=== PATIENT | female | born 1945 | race African-American/Black ===

== ENCOUNTER 2016-03-28 08:54 | Inpatient (IN) | payer MEDICARE, BC ==
[~2016-03-28] VITALS: Ht 165.1 cm; Wt 56.7 kg
[~2016-03-28 08:54] MED LIST: ATORVASTATIN CA10 MG ORAL; BACTRIM DS TAB1 EAC1 ORAL; BUPROPION XL300 MG ORAL; CYMBALTA30 MG ORAL; HYZAAR 100-251 EACH ORAL; MEDROL4 MG ORAL; NORVASC5 MG ORAL; PLAQUENIL200 MG ORAL; PLAVIX75 MG ORAL
[2016-03-28 09:00] VITALS: BP 138/80
[2016-03-28] MEDS ORDERED: NITROGLYCERIN0.4 MG SL (09:01)
[2016-03-28] MEDS ORDERED: BUPROPION XL300 MG ORAL (09:01)
[2016-03-28] MEDS ORDERED: LYRICA75 M1 ORAL (09:01)
[2016-03-28] MEDS ORDERED: Tubing IV Cassette IV ONE (09:35)
[2016-03-28 09:37] LABS: APPEARANCE,URINE CLEAR; KETONES,URINE NEGATIVE (NEGATIVE); LEUKOCYTE ESTERASE ,URINE 1+ (NEGATIVE); NITRITE,URINE NEGATIVE (NEGATIVE); PH,URINE 8 (4.5-8.0); PROTEIN,URINE NEGATIVE (NEGATIVE); UROBILINOGEN,URINE NORMAL MG/DL (0.0-1.0)
[2016-03-28 09:47] LABS: BACTERIA,URINE OCCASIONAL /HPF; RBC,URINE 0-2 /HPF (0 - 2); SQUAMOUS EPITHELIAL CELL,UR OCCASIONAL /LPF (NONE/OCC); WBC,URINE 0-2 /HPF (0 - 2)
[2016-03-28 09:58] LABS: MEAN CORPUSCULAR HEMOGLOBIN 26.9 PG (27.0-31.0); MEAN CORPUSCULAR HGB CONC 32.2 G/DL (32.0-36.0); MEAN CORPUSCULAR VOLUME 84 FL (80-99); MEAN PLATELET VOLUME 9.1 FL (6.5-10.1); PLATELET COUNT 199 K/UL (150-450); RED BLOOD COUNT 4.27 M/UL (4.20-5.40); RED CELL DISTRIBUTION WIDTH 14.8 % (11.6-14.8)
[2016-03-28 10:00] VITALS: BP 149/82
[2016-03-28 10:07] LABS: ALANINE AMINOTRANSFERASE 11 U/L (3-33); ALBUMIN/GLOBULIN RATIO 0.8 (1.0-2.7); ANION GAP 14 (5-15); ASPARTATE AMINO TRANSFERASE 19 U/L (5-40); CALCIUM 8.2 mg/dL (8.6-10.2); CARBON DIOXIDE 24 mEQ/L (20-30); CHLORIDE 99 mEQ/L (98-107); CREATININE 0.9 mg/dL (0.5-0.9); GLOMERULAR FILTRATION RATE > 60 mL/min (>60); HEMOLYSIS 36; LIPASE 13 U/L (< 60); POTASSIUM 3.9 mEQ/L (3.4-4.9); SODIUM 137 mEQ/L (135-145); TOTAL PROTEIN 6.4 g/dL (6.6-8.7)
[2016-03-28 10:17] LABS: TROPONIN I < 0.30 ng/mL (<=0.30)
[2016-03-28 10:21] LABS: CKMB 1.6 ng/mL (< 3.8)
[2016-03-28 10:31] LABS: ANISOCYTOSIS 1+; BAND NEUTROPHILS % (MANUAL) 0 % (0-8); BASOPHILS % (MANUAL) 0 % (0-2); EOSINOPHILS % (MANUAL) 0 % (0-3); HYPOCHROMASIA 1+; LYMPHOCYTES % (MANUAL) 2 % (20-45); NEUTROPHILS % (MANUAL) 94 % (45-75); PLATELET ESTIMATE ADEQUATE; PLATELET MORPHOLOGY NORMAL; TOTAL CELLS COUNTED 100
--- NOTE | 2016-03-28 10:39 | Diagnostic Imaging Report ---
Indication: Altered mental status Technique: Contiguous 5 mm thick transaxial imaging of the head obtained in a Siemens Sensation [address] scanner. Soft tissue and bone windows generated. Total Dose length Product (DLP): [address] Dose Index Volume (CTDIvol): 70.38 mGy Comparison: none Findings: There is mild prominence of the ventricles, basal cisterns, and cerebral sulci consistent with atrophy. Mild, nonspecific, white matter hypoattenuation is noted throughout the brain consistent with chronic small vessel disease. There is a 8mm lacunar infarct in the left basal ganglia region. This is probably old. There is no midline shift, edema, acute hemorrhage, mass effect, or abnormal extra-axial fluid collections. Bones and extra osseous soft tissues are unremarkable. Impression: No acute intracranial bleed, mass effect or edema. 8mm left basal ganglia lacunar infarct, probably old. Mild atrophy of the brain. Nonspecific white matter hypoattenuation probably due to chronic small vessel disease. The CT scanner at [facility] is accredited by the [employer] and the scans are performed using protocols designed to limit radiation exposure to as low as reasonably achievable to attain images of sufficient resolution adequate for diagnostic evaluation.
--- NOTE | 2016-03-28 11:53 | Diagnostic Imaging Report ---
Indication: Chest Pain Comparison: 12/06/15 A single view chest radiograph was obtained. Findings: Left hemidiaphragm is elevated. Borderline cardiomegaly is present. Lungs are clear. Bones are slightly osteopenic. Impression: Elevated left hemidiaphragm
[2016-03-28 12:08] VITALS: BP 129/77
[2016-03-28] MEDS ORDERED: DuoNeb 0.5-3(2.5)mg/3ml neb HHN PRN ×2 (13:15→17:15)
[2016-03-28] MEDS ORDERED: Nitroglycerin Subl 0.4mg tab (Bottle Of 25) SL PRN ×2 (13:15→16:45)
[2016-03-28] MEDS ORDERED: Miralax 17gm pkt ORAL PRN (13:15)
[2016-03-28] MEDS ORDERED: Vancomycin 1 GM in D5W 275 ML IVPB SCH (14:00)
[2016-03-28] MEDS ORDERED: DULoxetine 30mg cap ORAL SCH (14:00)
--- NOTE | 2016-03-28 14:06 | Neurology Progress Note ---
Objective Physical Exam Last Vital Signs Date Time Temp Pulse Resp B/P Pulse Ox O2 Delivery O2 Flow Rate FiO2 03/28/16 12:08 98.4 105 21 129/77 95 Room Air Laboratory Tests Test 03/28/16 09:05 03/28/16 09:35 Urine Color Pale yellow Urine Appearance Clear Urine pH 8 (4.5-8.0) Urine Specific [place] 1.005 (1.005-1.035) Urine Protein Negative (NEGATIVE) Urine Glucose (UA) Negative (NEGATIVE) Urine Ketones Negative (NEGATIVE) Urine Occult Blood Negative (NEGATIVE) Urine Nitrite Negative (NEGATIVE) Urine Bilirubin Negative (NEGATIVE) Urine Urobilinogen Normal MG/DL (0.0-1.0) Urine Leukocyte Esterase 1+ (NEGATIVE) H Urine RBC 0-2 /HPF (0 - 2) Urine WBC 0-2 /HPF (0 - 2) Urine Squamous Epithelial Cells Occasional /LPF Urine Bacteria Occasional /HPF (NONE) White Blood Count 11.0 K/UL (4.8-10.8) H Red Blood Count 4.27 M/UL (4.20-5.40) Hemoglobin 11.5 G/DL (12.0-16.0) L Hematocrit 35.7 % (37.0-47.0) L Mean Corpuscular Volume 84 FL (80-99) Mean Corpuscular Hemoglobin 26.9 PG (27.0-31.0) L Mean Corpuscular Hemoglobin Concent 32.2 G/DL (32.0-36.0) Red Cell Distribution Width 14.8 % (11.6-14.8) Platelet Count 199 K/UL (150-450) Mean Platelet Volume 9.1 FL (6.5-10.1) Neutrophils (%) (Auto) % (45.0-75.0) Lymphocytes (%) (Auto) % (20.0-45.0) Monocytes (%) (Auto) % (1.0-10.0) Eosinophils (%) (Auto) % (0.0-3.0) Basophils (%) (Auto) % (0.0-2.0) Differential Total Cells Counted 100 Neutrophils % (Manual) 94 % (45-75) H Lymphocytes % (Manual) 2 % (20-45) L Monocytes % (Manual) 4 % (1-10) Eosinophils % (Manual) 0 % (0-3) Basophils % (Manual) 0 % (0-2) Band Neutrophils 0 % (0-8) Platelet Estimate Adequate Platelet Morphology Normal Hypochromasia 1+ Anisocytosis 1+ Sodium Level 137 mEQ/L (135-145) Potassium Level 3.9 mEQ/L (3.4-4.9) Chloride Level 99 mEQ/L (98-107) Carbon Dioxide Level 24 mEQ/L (20-30) Anion Gap 14 (5-15) Blood Urea Nitrogen 11 mg/dL (7-23) Creatinine 0.9 mg/dL (0.5-0.9) Estimat Glomerular Filtration Rate > 60 mL/min (>60) Glucose Level 168 mg/dL (74-106) H Lactic Acid Level 1.90 mmol/L (0.66-2.22) Calcium Level 8.2 mg/dL (8.6-10.2) L Total Bilirubin 0.3 mg/dL (0.0-1.2) Aspartate Amino Transf (AST/SGOT) 19 U/L (5-40) Alanine Aminotransferase (ALT/SGPT) 11 U/L (3-33) Alkaline Phosphatase 46 U/L (35-104) Total Creatine Kinase 178 U/L (26-140) H Creatine Kinase MB 1.6 ng/mL (< 3.8) Creatine Kinase MB Relative Index 0.8 Troponin I < 0.30 ng/mL (<=0.30) Pro-B-Type Natriuretic Peptide 423 pg/mL (0-125) H Total Protein 6.4 g/dL (6.6-8.7) L Albumin 3.0 g/dL (3.5-5.2) L Globulin 3.4 g/dL Albumin/Globulin Ratio 0.8 (1.0-2.7) L Lipase 13 U/L (< 60) Impression/Recommendations Problems: (1) probably Meningitis vs. Sepsis with severe encephalopathy (2) Depression (3) h/o benign brain tumor resection and XRT (4) recent UTI (5) Fibromyalgia (6) Lupus (systemic lupus erythematosus) Status: unchanged Recommendations #[id number] CHRISTINE LOPEZ Mar 28, 2016 14:06
[2016-03-28 14:12] LABS: INR 1.1 (0.9-1.1)
--- NOTE | 2016-03-28 14:24 | Emergency Room Report ---
History of Present Illness General Chief Complaint: Altered Level of Consciousness Source: Family Member, EMS Present Illness HPI Patient presents with altered mental status Patient was found this morning by son to be confused and altered Patient has a history of brain tumor and surgery back in 2007 Here the patient is able to make eye contact Withdraws to painful stimuli However is not verbal and does not follow commands Last time known well was over 12 hours ago There was a questionable report of vomiting patient was also found to be very hypoglycemic initially by paramedics given glucose and appears to have responded somewhat to that Patient also has had URI symptoms with increased cough And low-grade fevers at home Otherwise as the patient remains nonverbal history of present illness is significantly limited Allergies: Coded Allergies: IODINE (Verified Allergy, Severe, 03/28/16) ASPIRIN (Verified Allergy, Unknown, 12/06/15) CODEINE (Verified Allergy, Unknown, 12/06/15) Patient History Limited by: medical condition Past Medical History: see triage record Pertinent Family History: none Last Menstrual Period: na Now: No Reviewed Nursing Documentation: PMH: Agreed, PSxH: Agreed Nursing Documentation-PMH Past Medical History: No History, Except For Hx Cardiac Problems: Yes Hx Hypertension: Yes Hx Cancer: Yes - Brain tumor History Of Psychiatric Problem: Yes - depression Hx Seizures: Yes Review of Systems All Other Systems: limited - Other than the ones mentioned in the history of present illness all others are reviewed however they do stay limited due to the patient's mental status Physical Exam Vital Signs Date Time Temp Pulse Resp B/P Pulse Ox O2 Delivery O2 Flow Rate FiO2 03/28/16 08:49 102.7 96 22 147/80 98 Room Air Sp02 EP Interpretation: reviewed, normal General Appearance: no apparent distress - However the patient has a decreased GCS nonverbal Head: normocephalic, atraumatic Eyes: bilateral eye PERRL ENT: normal pharynx, no angioedema, uvula midline Neck: supple, thyroid normal, no meningismus Respiratory: crackles - In both lower lobes, otherwise no retractions Cardiovascular #1: regular rate, rhythm, no edema, no gallop Gastrointestinal: soft, no mass Genitourinary: no CVA tenderness Musculoskeletal: other - Patient was moving upper extremity towards painful stimuli, when the patient required a femoral stick for blood draw, but not following commands Neurologic: other - Patient localizes towards painful stimuli, otherwise nonverbal continues not to be verbal, neurological exam is significantly diminished, Skin: normal color, no rash Lymphatic: no adenopathy Medical Decision Making Diagnostic Impression: Primary Impression: Acute encephalopathy Additional Impressions: Sepsis History of brain tumor Lupus (systemic lupus erythematosus) ER Course Patient is a fairly complex patient with multiple differential to consideration including but not limited to cardiac cardiopulmonary and vascular emergencies Given the patient's history of lupus, microvascular pathology is also entertained CT head shows a previous old lacunar infarct no obvious acute pathology Blood work is at otherwise baseline levels chest x-ray was appropriate Patient has had URI symptoms I do not appreciate any obvious meningismus Patient's CBC is normal and remains hemodynamically stable Patient will require further inpatient care neurology consultation possible MRI And CSF studies as warranted Please note that the patient was also here several months ago syncope Family also mentions that the patient has acute changes of mentation intermittently Labs Test 03/28/16 09:05 03/28/16 09:35 03/28/16 12:35 Urine Color Pale yellow Urine Appearance Clear Urine pH 8 (4.5-8.0) Urine Specific [place] 1.005 (1.005-1.035) Urine Protein Negative (NEGATIVE) Urine Glucose (UA) Negative (NEGATIVE) Urine Ketones Negative (NEGATIVE) Urine Occult Blood Negative (NEGATIVE) Urine Nitrite Negative (NEGATIVE) Urine Bilirubin Negative (NEGATIVE) Urine Urobilinogen Normal MG/DL (0.0-1.0) Urine Leukocyte Esterase 1+ (NEGATIVE) Urine RBC 0-2 /HPF (0 - 2) Urine WBC 0-2 /HPF (0 - 2) Urine Squamous Epithelial Cells Occasional /LPF Urine Bacteria Occasional /HPF (NONE) White Blood Count 11.0 K/UL (4.8-10.8) Red Blood Count 4.27 M/UL (4.20-5.40) Hemoglobin 11.5 G/DL (12.0-16.0) Hematocrit 35.7 % (37.0-47.0) Mean Corpuscular Volume 84 FL (80-99) Mean Corpuscular Hemoglobin 26.9 PG (27.0-31.0) Mean Corpuscular Hemoglobin Concent 32.2 G/DL (32.0-36.0) Red Cell Distribution Width 14.8 % (11.6-14.8) Platelet Count 199 K/UL (150-450) Mean Platelet Volume 9.1 FL (6.5-10.1) Neutrophils (%) (Auto) % (45.0-75.0) Lymphocytes (%) (Auto) % (20.0-45.0) Monocytes (%) (Auto) % (1.0-10.0) Eosinophils (%) (Auto) % (0.0-3.0) Basophils (%) (Auto) % (0.0-2.0) Differential Total Cells Counted 100 Neutrophils % (Manual) 94 % (45-75) Lymphocytes % (Manual) 2 % (20-45) Monocytes % (Manual) 4 % (1-10) Eosinophils % (Manual) 0 % (0-3) Basophils % (Manual) 0 % (0-2) Band Neutrophils 0 % (0-8) Platelet Estimate Adequate Platelet Morphology Normal Hypochromasia 1+ Anisocytosis 1+ Sodium Level 137 mEQ/L (135-145) Potassium Level 3.9 mEQ/L (3.4-4.9) Chloride Level 99 mEQ/L (98-107) Carbon Dioxide Level 24 mEQ/L (20-30) Anion Gap 14 (5-15) Blood Urea Nitrogen 11 mg/dL (7-23) Creatinine 0.9 mg/dL (0.5-0.9) Estimat Glomerular Filtration Rate > 60 mL/min (>60) Glucose Level 168 mg/dL (74-106) Lactic Acid Level 1.90 mmol/L (0.66-2.22) Calcium Level 8.2 mg/dL (8.6-10.2) Total Bilirubin 0.3 mg/dL (0.0-1.2) Aspartate Amino Transf (AST/SGOT) 19 U/L (5-40) Alanine Aminotransferase (ALT/SGPT) 11 U/L (3-33) Alkaline Phosphatase 46 U/L (35-104) Total Creatine Kinase 178 U/L (26-140) Creatine Kinase MB 1.6 ng/mL (< 3.8) Creatine Kinase MB Relative Index 0.8 Troponin I < 0.30 ng/mL (<=0.30) Pro-B-Type Natriuretic Peptide 423 pg/mL (0-125) Total Protein 6.4 g/dL (6.6-8.7) Albumin 3.0 g/dL (3.5-5.2) Globulin 3.4 g/dL Albumin/Globulin Ratio 0.8 (1.0-2.7) Lipase 13 U/L (< 60) Prothrombin Time 11.0 SEC (9.30-11.50) Prothromb Time International Ratio 1.1 (0.9-1.1) Rhythm Strip Diag. Results EP Interpretation: yes Rate: 77 Rhythm: NSR, no PVC's, no ectopy Chest X-Ray Diagnostic Results EP Interpretation: Yes Findings: no consolidation, no effusion, no pneumothorax Number of Views: 1 CT/MRI/US Diagnostic Results CT/MRI/US Diagnostic Results : Impression CT head: No acute disease, old lacunar infarct Last Vital Signs Date Time Temp Pulse Resp B/P Pulse Ox O2 Delivery O2 Flow Rate FiO2 03/28/16 12:08 98.4 105 21 129/77 95 Room Air Status: unchanged Disposition: ADMITTED INPATIENT Condition: Critical Referrals: NON PHYSICIAN (PCP) HELIO VELASQUEZ D.O. Mar 28, 2016 14:24
[2016-03-28] MEDS ORDERED: Cefepime HCl 2 GM in D5W 110 ML IV SCH (15:00)
--- NOTE | 2016-03-28 15:05 | History and Physical ---
History of Present Illness General Date patient seen: Mar 28, 2016 Reason for Hospitalization: Altered Level of Consciousness Present Illness HPI 71 year old female with hx of brain tumor, HTN, was not feeling well for one week, eating less, she became more lethargic in the last hours prior to admission, therefore family members called the paramedics. Pt was somnolent in ER. she was thought to be hypoglycemic and recieved D50 and NS bolus and transferred to medical floor. Allergies: Coded Allergies: IODINE (Verified Allergy, Severe, 03/28/16) ASPIRIN (Verified Allergy, Unknown, 12/06/15) CODEINE (Verified Allergy, Unknown, 12/06/15) Medication History Scheduled Amlodipine Besylate (Norvasc), 10 MG ORAL DAILY, (Reported) Atorvastatin Calcium* (Lipitor*), 10 MG ORAL BEDTIME, (Reported) Bupropion Hcl* (Wellbutrin*), 300 MG ORAL DAILY, (Reported) Bupropion Hcl* (Wellbutrin*), MG ORAL DAILY, (Reported) Clopidogrel Bisulfate* (Plavix*), 75 MG ORAL DAILY, (Reported) Duloxetine Hcl* (Cymbalta*), 30 MG ORAL DAILY, (Reported) Hydroxychloroquine Sulfate* (Plaquenil*), 200 MG ORAL DAILY, (Reported) Losartan/Hydrochlorothiazide 100-25 Tablet (Hyzaar 100-25 Tablet), 1 TAB ORAL DAILY, (Reported) Methylprednisolone* (Medrol*), 4 MG ORAL DAILY, (Reported) Pregabalin* (Lyrica*), 75 MG ORAL THREE TIMES A DAY, (Reported) Trimethoprim/Sulfamethoxazole 160/800* (Bactrim Ds Tablet*), 1 TAB ORAL Q12H Miscellaneous Medications Nitroglycerin (Nitroglycerin), 0.4 MG SL, (Reported) Patient History History Provided By: Family Member Healthcare decision maker Brandon Gil, son Resuscitation status Full Code Advanced Directive on File Past Medical/Surgical History Past Medical/Surgical History: (1) Lupus (systemic lupus erythematosus) (2) Fibromyalgia (3) Depression Review of Systems All Other Systems: negative except mentioned in HPI ROS Narrative pt can't give any history, in coma. Physical Exam Lines, tubes and drains: peripheral HEENT: normocephalic, atraumatic Neck: non-tender, normal alignment Respiratory/Chest: chest wall non-tender, lungs clear Cardiovascular/Chest: normal peripheral pulses, normal rate Abdomen: normal bowel sounds, non tender Genitourinary/Rectal: normal genital exam, normal rectal exam Extremities: normal range of motion Skin Exam: normal pigmentation Last 24 Hour Vital Signs Date Time Temp Pulse Resp B/P Pulse Ox O2 Delivery O2 Flow Rate FiO2 03/28/16 12:08 98.4 105 21 129/77 95 Room Air 03/28/16 10:56 102.4 99 18 149/82 100 Room Air 03/28/16 10:00 99 18 149/82 100 Room Air 03/28/16 09:00 102.4 95 18 138/80 99 Room Air 03/28/16 08:49 102.7 96 22 147/80 98 Room Air Laboratory Tests Test 03/28/16 09:05 03/28/16 09:35 03/28/16 12:35 Urine Color Pale yellow Urine Appearance Clear Urine pH 8 (4.5-8.0) Urine Specific [place] 1.005 (1.005-1.035) Urine Protein Negative (NEGATIVE) Urine Glucose (UA) Negative (NEGATIVE) Urine Ketones Negative (NEGATIVE) Urine Occult Blood Negative (NEGATIVE) Urine Nitrite Negative (NEGATIVE) Urine Bilirubin Negative (NEGATIVE) Urine Urobilinogen Normal MG/DL (0.0-1.0) Urine Leukocyte Esterase 1+ (NEGATIVE) H Urine RBC 0-2 /HPF (0 - 2) Urine WBC 0-2 /HPF (0 - 2) Urine Squamous Epithelial Cells Occasional /LPF Urine Bacteria Occasional /HPF (NONE) White Blood Count 11.0 K/UL (4.8-10.8) H Red Blood Count 4.27 M/UL (4.20-5.40) Hemoglobin 11.5 G/DL (12.0-16.0) L Hematocrit 35.7 % (37.0-47.0) L Mean Corpuscular Volume 84 FL (80-99) Mean Corpuscular Hemoglobin 26.9 PG (27.0-31.0) L Mean Corpuscular Hemoglobin Concent 32.2 G/DL (32.0-36.0) Red Cell Distribution Width 14.8 % (11.6-14.8) Platelet Count 199 K/UL (150-450) Mean Platelet Volume 9.1 FL (6.5-10.1) Neutrophils (%) (Auto) % (45.0-75.0) Lymphocytes (%) (Auto) % (20.0-45.0) Monocytes (%) (Auto) % (1.0-10.0) Eosinophils (%) (Auto) % (0.0-3.0) Basophils (%) (Auto) % (0.0-2.0) Differential Total Cells Counted 100 Neutrophils % (Manual) 94 % (45-75) H Lymphocytes % (Manual) 2 % (20-45) L Monocytes % (Manual) 4 % (1-10) Eosinophils % (Manual) 0 % (0-3) Basophils % (Manual) 0 % (0-2) Band Neutrophils 0 % (0-8) Platelet Estimate Adequate Platelet Morphology Normal Hypochromasia 1+ Anisocytosis 1+ Sodium Level 137 mEQ/L (135-145) Potassium Level 3.9 mEQ/L (3.4-4.9) Chloride Level 99 mEQ/L (98-107) Carbon Dioxide Level 24 mEQ/L (20-30) Anion Gap 14 (5-15) Blood Urea Nitrogen 11 mg/dL (7-23) Creatinine 0.9 mg/dL (0.5-0.9) Estimat Glomerular Filtration Rate > 60 mL/min (>60) Glucose Level 168 mg/dL (74-106) H Lactic Acid Level 1.90 mmol/L (0.66-2.22) Calcium Level 8.2 mg/dL (8.6-10.2) L Total Bilirubin 0.3 mg/dL (0.0-1.2) Aspartate Amino Transf (AST/SGOT) 19 U/L (5-40) Alanine Aminotransferase (ALT/SGPT) 11 U/L (3-33) Alkaline Phosphatase 46 U/L (35-104) Total Creatine Kinase 178 U/L (26-140) H Creatine Kinase MB 1.6 ng/mL (< 3.8) Creatine Kinase MB Relative Index 0.8 Troponin I < 0.30 ng/mL (<=0.30) Pro-B-Type Natriuretic Peptide 423 pg/mL (0-125) H Total Protein 6.4 g/dL (6.6-8.7) L Albumin 3.0 g/dL (3.5-5.2) L Globulin 3.4 g/dL Albumin/Globulin Ratio 0.8 (1.0-2.7) L Lipase 13 U/L (< 60) Prothrombin Time 11.0 SEC (9.30-11.50) Prothromb Time International Ratio 1.1 (0.9-1.1) Height (Feet): 5 Height (Inches): 5.00 Weight (Pounds): 125 Medications Current Medications Medications (Trade) Dose Ordered Sig/Ayana Route PRN Reason Start Time Stop Time Status Last Admin Dose Admin Acetaminophen (Tylenol) 650 mg Q4H PRN ORAL fever 03/28/16 13:15 04/27/16 13:14 Albuterol/ Ipratropium 3 ml 3 ml Q4H PRN HHN Shortness of Breath 03/28/16 13:15 04/02/16 13:14 Amlodipine Besylate (Norvasc) 10 mg DAILY ORAL 03/29/16 09:00 04/28/16 08:59 Atorvastatin Calcium (Lipitor) 10 mg BEDTIME ORAL 03/28/16 21:00 04/27/16 20:59 Bupropion HCl (Wellbutrin XL) 300 mg DAILY ORAL 03/29/16 09:00 04/28/16 08:59 Cefepime HCl 2 gm/ Dextrose 110 ml @ 110 mls/hr Q24H IV 03/28/16 15:00 04/04/16 14:59 Clopidogrel Bisulfate (Plavix) 75 mg DAILY ORAL 03/28/16 14:00 04/27/16 13:59 Duloxetine HCl (Cymbalta) 30 mg DAILY ORAL 03/28/16 14:00 04/27/16 13:59 Heparin Sodium (Porcine) (Heparin 5000 units/ml) 5,000 units EVERY 12 HOURS SUBQ 03/28/16 21:00 04/27/16 20:59 Hydroxychloroquine Sulfate (Plaquenil) 200 mg DAILY ORAL 03/29/16 09:00 04/28/16 08:59 UNV Methylprednisolone (Medrol) 4 mg DAILY ORAL 03/29/16 09:00 04/28/16 08:59 UNV Nitroglycerin 0.4 mg 0.4 mg Q5M PRN SL Prn Chest Pain 03/28/16 13:15 04/27/16 13:14 Ondansetron HCl (Zofran) 4 mg Q6H PRN IVP Nausea & Vomiting 03/28/16 13:15 04/27/16 13:14 Polyethylene Glycol (Miralax) 17 gm DAILYPRN PRN ORAL Constipation 03/28/16 13:15 04/27/16 13:14 Pregabalin (Lyrica) 75 mg THREE TIMES A DAY ORAL 03/28/16 18:00 04/27/16 17:59 Sodium Chloride (0.45% NS 1000ml) 1,000 ml @ 75 mls/hr [id number] IV 03/28/16 13:30 04/27/16 13:29 Temazepam (Restoril) 15 mg HSPRN PRN ORAL Insomnia 03/28/16 13:15 04/04/16 13:14 Vancomycin HCl (Vanco rx to dose) 1 ea DAILY PRN MISC PER RX PROTOCOL 03/28/16 13:30 04/27/16 13:29 Vancomycin HCl/ Dextrose (Vancomycin/D5W) 275 ml @ 183.3 mls/ hr Q24H IVPB 03/28/16 14:00 04/02/16 13:59 Assessment/Plan Problem List: (1) Acute encephalopathy ICD Codes: G93.40 - Encephalopathy, unspecified SNOMED: 4869637 (2) probably Meningitis vs. Sepsis with severe encephalopathy (3) Sepsis ICD Codes: A41.9 - Sepsis, unspecified organism SNOMED: 30574525 (4) Lupus (systemic lupus erythematosus) ICD Codes: M32.9 - Systemic lupus erythematosus, unspecified SNOMED: 93174748, [id number] Qualifiers: Qualified Codes: M32.9 - Systemic lupus erythematosus, unspecified (5) Fibromyalgia ICD Codes: M79.7 - Fibromyalgia SNOMED: 905155788 Assessment/Plan spinal tab by radiology broad spectrum antibiotics Neuro and ID evaluation dvt prophylaxis check cultures daily labs. CHRISTINE NAJERA Mar 28, 2016 15:05
--- NOTE | 2016-03-28 15:47 | Diagnostic Imaging Report ---
Indication: altered mental status Findings: After the indications, procedure, risks, complications, and alternatives of the procedure were explained, written informed consent was obtained. The lower back was prepped and draped in standard sterile fashion.1% lidocaine was used to anesthetize the skin. Using fluoroscopic guidance, 22-gauge spinal needle was advanced into the spinal canal at the level of L4. Multiple attempts were made at the levels of L3, L4 and L5. Only about 3 cc of CSF was obtained and blood-tinged because of the difficulty performing the procedure. Part of the difficulty was related to combativeness. Patient was confused and fluoroscopic guidance was hindered by constant movement. There were no complications. Impression: Lumbar puncture performed. Suboptimal procedure as discussed above.
[2016-03-28 16:00] VITALS: BP 129/77
--- NOTE | 2016-03-28 16:27 | Consultation ---
Consult Note Consult Note ID CONSULT: Dict# [id number] Assessment/Plan ASSESSMENT: 71 y/o female with: // Acute encephalopathy r/o meningitis, SLE cerebritis - SP difficult LP, only 3cc bloody (traumatic) CSF - analysis pending - CT Head: No acute intracranial bleed, mass effect or edema. 8mm left basal ganglia lacunar infarct, probably old. Mild atrophy of the brain. Nonspecific white matter hypoattenuation probably due to chronic small vessel disease. - probable viral with recent URI Sx // Recent URI // Probable sepsis // Leukocytosis, mild // Fever // SLE, on plaquenil, steroids // Fibromyalgia // h/o brain tumor SP resection 2007 // No ABX allergies // Full Code PLAN: - continue empiric IV vancomycin d# 1, change cefepime to rocephin, ampicillin, ACY meningitis coverage pending CSF studies - check influenza, HIV, RPR, HSV serology, TSH, NH4, B12, folate, UDS - consider MRI brain - f/u cultures - f/u CSF studies - f/u EBONY - monitor CBC, temperatures - monitor BMP - droplet precautions pending CSF studies d/w family at bedside Thanks! Will follow KIP HARDIGN Mar 28, 2016 16:27
[2016-03-28] MEDS ORDERED: Acyclovir 1,000 MG in D5W 275 ML IVPB SCH (16:30)
[2016-03-28 16:53] LABS: GLUCOSE,CSF 38 mg/dL (50-80)
[2016-03-28 17:12] LABS: APPEARANCE,CSF HAZY; COLOR,CSF PALE YELLOW
[2016-03-28 17:15] LABS: LYMPHOCYTES,CSF 88 %; WHITE BLOOD CELL,CSF 12 /CU MM (0-5)
[2016-03-28] MEDS ORDERED: Ampicillin 1 GM in NS 55 ML IVPB SCH (18:00)
[2016-03-28] MEDS: Lyrica 75mg cap ORAL SCH (18:00)
[2016-03-28] MEDS ORDERED: Lyrica 75mg cap ORAL SCH (18:00)
[2016-03-28] MEDS: Ampicillin 2 GM in NS 110 ML IV SCH ×2 (18:16→23:51)
[2016-03-28 18:31] LABS: THYROID STIMULATING HORMONE 0.682 uIU/mL (0.300-4.500)
[2016-03-28] MEDS: cefTRIAXone 2 GM in D5W 110 ML IVPB SCH (19:39)
[2016-03-28 20:00] VITALS: BP 144/87
[2016-03-28] MEDS ORDERED: Morphine Sulfate 2mg/ml Inj IVP PRN (20:15)
[2016-03-28] MEDS ORDERED: cefTRIAXone 2 GM in D5W 110 ML IVPB SCH (21:00)
[2016-03-28] MEDS ORDERED: Heparin 5000 units/ml inj SUBQ SCH (21:00)
[2016-03-28 21:04] LABS: APPEARANCE,URINE CLEAR; KETONES,URINE 2+ (NEGATIVE); LEUKOCYTE ESTERASE ,URINE NEGATIVE (NEGATIVE); NITRITE,URINE NEGATIVE (NEGATIVE); PH,URINE 8 (4.5-8.0); PROTEIN,URINE 1+ (NEGATIVE); UROBILINOGEN,URINE NORMAL MG/DL (0.0-1.0)
[2016-03-28] MEDS: Heparin 5000 units/ml inj SUBQ SCH (21:14)
[2016-03-28] MEDS: ACYCLOVIR IV SCH (21:14)
[2016-03-28] MEDS: D5W IV SCH (21:14)
[2016-03-28 21:27] LABS: RBC,URINE 0-2 /HPF (0 - 2); SQUAMOUS EPITHELIAL CELL,UR OCCASIONAL /LPF (NONE/OCC); WBC,URINE 0-2 /HPF (0 - 2)
--- NOTE | 2016-03-28 21:48 | Consultation ---
DATE OF CONSULTATION: 03/28/2016 INFECTIOUS DISEASE CONSULTATION REQUESTING PHYSICIAN: Gregory Campos M.D. REASON FOR CONSULTATION: Acute encephalopathy. HISTORY OF PRESENT ILLNESS: This is a 71-year-old female with a history of lupus on Plaquenil and steroids admitted on 03/28/2016 with altered mental status. The patient had been recently recovering from upper respiratory tract infection. The patient is unable to provide any information. A CT of the head showed no acute intracranial bleed and probable old left basal ganglia infarct. A lumbar puncture was attempted under fluoroscopy, but it was difficult due to patient cooperation. Only a 3 mL of bloody fluid was obtained and analysis is pending. She has evidence of mild leukocytosis and fever at 102.7. She has been started on empiric vancomycin and cefepime and ID now consulted to assist in management. PAST MEDICAL HISTORY: 1. Lupus. 2. Depression. 3. Fibromyalgia. 4. Hypertension. 5. Brain tumor. PAST SURGICAL HISTORY: Brain tumor resection in 2007. ALLERGIES: 1. Aspirin. 2. Codeine. 3. Iodine. MEDICATIONS: 1. Vancomycin day #1. 2. Cefepime day #1. 3. Solu-Medrol. 4. Plaquenil. 5. Bupropion. 6. Norvasc. 7. Lipitor. 8. Subcutaneous heparin. 9. Lyrica. 10. Plavix. 11. Cymbalta. FAMILY HISTORY: Noncontributory. SOCIAL HISTORY: The patient lives locally with family. No active tobacco, alcohol, or illicit drug abuse. REVIEW OF SYSTEMS: Unable to obtain. PHYSICAL EXAMINATION: VITAL SIGNS: Maximum temperature 102.7 degrees, blood pressure 129/77, heart rate in the 90s, respiratory rate 21, and saturating 95% on room air. GENERAL: Encephalopathic and restless. HEENT: Dry mucous membranes. Poor dentition. CARDIOVASCULAR: Regular rate and rhythm. No murmurs. PULMONARY: Clear to auscultation bilaterally. ABDOMEN: Bowel sounds present. Soft, nondistended, and nontender. EXTREMITIES: No edema. SKIN: No rash. LABORATORY DATA: White blood cell count 11 with left shift, hemoglobin 11.5, and platelets 199,000. Sodium 137, potassium 3.9, chloride 99, bicarbonate 24, BUN 11, and creatinine 0.9. Lactic acid is 1.9. AST 19, ALT 11, and alkaline phosphatase 46. Total bilirubin is 0.3. Albumin is 3. Troponin is negative x1. Lipase is 30. MICROBIOLOGY: 1. On 03/28/2016, blood culture pending. 2. On 03/28/2016, CSF culture pending. 3. On 03/28/2016, urine culture pending. IMAGIN. On 03/28/2016, CT of the head, no acute intracranial bleed, mass effect, or edema. A 8 mm left basal ganglia lacunar infarct probably old. Mild atrophy. Nonspecific white matter hypoattenuation probably due to chronic small vessel disease. 2. On 03/28/2016, chest x-ray, no acute findings. ASSESSMENT: 1. Acute encephalopathy rule out meningitis or lupus cerebritis. Status post difficult lumbar puncture with only 3 mL traumatic CSF obtained. Analysis is pending. The CT of the head, as above. The rest represent meningitis likely viral with recent upper respiratory tract symptoms. 2. Recent upper respiratory tract infection. 3. Probable sepsis. 4. Leukocytosis, mild. 5. Fever. 6. Lupus on Plaquenil and steroids. 7. Fibromyalgia. 8. History of brain tumor status post resection in 2007. 9. No antibiotic allergies. 10. Full Code. PLAN: 1. Continue empiric IV vancomycin day #1 and change cefepime to Rocephin and ampicillin and acyclovir for meningitis coverage. Pending CSF studies. 2. Check influenza screen, HIV, RPR, HSV, TSH, ammonia, B12 folate and drug screen. 3. Consider MRI of the brain. 4. Follow up cultures. 5. Follow up CSF studies. 6. Follow up EBONY. 7. Monitor CBC and temperatures. 8. Monitor BMP. 9. Droplet precautions pending CSF studies. 10. Discussed with family at bedside. Thank you. We will follow. Guero Cannon M.D. DR: SONIA JOB#: [id number] CC: Gregory Campos M.D.; Fax#: [phone] Lerma M.D; Fax#: [phone]
[2016-03-28] MEDS ORDERED: LORAZEPAM1 MG ORAL (21:49)
[2016-03-28] MEDS ORDERED: LOSARTAN-HCTZ1 EACH ORAL (21:49)
[2016-03-28] MEDS ORDERED: BACTRIM DS TAB1 EAC1 ORAL (21:53)
--- NOTE | 2016-03-28 22:07 | Consultation ---
DATE OF CONSULTATION: 03/28/2016 NEUROLOGICAL CONSULTATION HISTORY OF PRESENT ILLNESS: The patient is a 71-year-old female seen in neurological consultation to evaluate new onset of unresponsiveness according to the family who were present during this examination. The patient was treated for urinary tract infection and diarrhea in November of last year was maintained on antibiotics with some overall improvement but couple of weeks ago when rechecked by her family physician she was told that her infection coming back, she was prescribed a new antibiotics but at that point she started to get "sicker." The patient developed signs of flu like symptoms accompanied by nausea, vomiting, lack of appetite, generalized weakness, spending most of the days in bed, complaining of severe headache, myalgia, nausea, and vomiting. She was taking Tylenol, Advil, and [id number] analgesics, felt somewhat better yesterday and around 01:30 on the phone with her daughter she was found to be very good and was coherent, later on the day after having a dinner with her nephew she was nauseous, had vomiting, and went to bed. In the morning her grandson found her unresponsive, she was initially able to relate to her first name but as paramedics arrived she was taken to emergency room she become completely nonverbal. Her blood sugar was initially 55 she was given D50, no much of improvement occurred, she was suspected to have hypoglycemic crisis. Her vital signs included presence of low-grade fevers of 101. Medications at home included Bactrim, Medrol Silver, atorvastatin, losartan, Cymbalta. The family states that new antibiotics were given by her doctor and were not actually taken. Following admission, laboratory work was obtained revealing CBC study with WBC 11.0 hemoglobin 11.5. Chemistry panel with BNP 423, blood sugar 168. Lactic acid 1.90. Urinalysis was essentially normal. Stat CT of the brain revealed old basal ganglia lacunar infarct in the left basal ganglia, mild diffuse atrophy and there was a nonspecific white matter hypoattenuation, probable chronic small vessel disease. Chest x-ray, left hemidiaphragmatic elevated but borderline cardiomegaly. Following admission, the patient remained fever 102.7 blood pressure 147/80 and heart rate of 100 to 105. The patient remained unresponsive including to her family. PAST MEDICAL HISTORY: The patient has extensive medical history. She had benign brain tumor in 2007 required treatment with radiation and transnasal resection. She has history of lupus erythematosus, history of fibromyalgia, depression, hypertension, gastroesophageal reflux disease. Her treatment prior to admission included Wellbutrin, atorvastatin, amlodipine, Plavix, Cymbalta, Plaquenil, Hyzaar, Medrol 4 mg daily, Lyrica 75 mg t.i.d., PAST SURGICAL HISTORY: Family now informed me that she had bilateral cataract surgeries. ALLERGIES: Aspirin, codeine, and iodine. FAMILY HISTORY: Noncontributory. SOCIAL HISTORY: The patient lives at home with her grandson. She is independent, provide herself with all activities of daily living. Ambulating without cane, able to cook meals. No alcohol, no drug abuse but she is a smoker. REVIEW OF SYSTEM: Unable to obtain due to patient's status. PHYSICAL EXAMINATION: GENERAL: The patient is a well-developed and well-nourished female, found to be lying in bed, appears to be asleep. VITAL SIGNS: Now stable with blood pressure 129/77, heart rate of 105, temperature 97.4. HEENT: Head is normocephalic. There is no evidence of trauma. NECK: Rigid on flexion. Positive meningeal signs. SKIN: Unremarkable. There is no rash. Peripheral pulses 1+ symmetric. No thyromegaly. No lymphadenopathy noted. MENTAL STATUS: The patient appears to be asleep but on stimulation she briefly open eyes, have a brief eye contact. She has a remained nonverbal and she does not follow any commands even given by her children. CRANIAL NERVE II: Pupils both responding to light and accommodation. Extraocular movement full range. Unable to see fundi CRANIAL NERVE V: Normal corneal responses. CRANIAL NERVE VII: No gross facial asymmetry. CRANIAL NERVE III: Normal hearing. CRANIAL NERVE IX THROUGH XII: The patient kept mouth very shut and never opened it. MOTOR EXAMINATION: Able to lift arms against the gravity. Able to resists with both lower extremities, straight leg raising, mildly positive bilaterally. Deep tendon reflexes 1+ bilaterally symmetric. Plantar responses flexor. SENSORY EXAMINATION: No response to pin stimulation. Gait not tested. IMPRESSION: 1. This is a 71-year-old female with persistent infection now presenting what appears to be sepsis versus meningitis. 2. Systemic lupus erythematosus, rule out lupus encephalitis. 3. Fibromyalgia. 4. Status post benign brain tumor resection status post radiation therapy. 5. History of depression. 6. Indepedent. 7. Recently diagnosed coronary artery disease. RECOMMENDATION: 1. The patient to have stat spinal tap to obtain spinal fluid. 2. Start on steroids and Decadron 6 mg IVPB every six hours. 3. NPO. 4. IV fluids, antibiotics with wide coverage per ID. 5. Hold all unessential treatment. 6. If stable obtain MRI of the brain with and without contrast. I discussed the patient's status with the family who agreed to sign consent for the patient, discussed with attending physician. Thank you for allowing me to see this interesting patient in neurological consultation. Rolando Nancy Delarosa DR: Eduarda JOB#: [id number] CC:
[2016-03-29 00:25] VITALS: BP 135/77
--- NOTE | 2016-03-29 01:47 | Consultation ---
DATE OF CONSULTATION: 03/28/2016 RHEUMATOLOGICAL CONSULTATION CONSULTING PHYSICIAN: Peggy Youssef M.D. REASON FOR CONSULTATION: I was asked by Dr. Campos to assess this 71-year-old patient because of sudden loss of consciousness and state of unresponsiveness associated with high fever and history of lupus. HISTORY OF PRESENT ILLNESS: The patient is known to have fibromyalgia and systemic lupus erythematosus being followed by a mandarin chinese teacher, Dr. Gary Dorsey, telephone #[phone]. She is known to have systemic lupus for many years and is being followed by a mandarin chinese teacher on a regular basis. She has also associated diagnosis of fibromyalgia and for the last year has only one admission for urinary tract infection in this hospital in November 2015. She was placed on Lyrica for fibromyalgia more than 10 days ago, however, few days later she developed fever and remained bedridden and did not take the Lyrica. This morning, she was found unresponsive in bed. She was transferred to [facility] ER and was admitted. Since her admission, she has been assessed by a neurologist. She had chest x-ray, head CT, and lumbar puncture, which revealed low glucose and high protein, and the patient was transferred to the cardiac monitoring unit. PAST MEDICAL HISTORY: The criteria for her systemic lupus was known to the family. The patient does not respond to any question, however, the patient is alert enough to establish eye contact at least for a brief period of time. 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 The patient tolerated the procedure well. She followed the procedure. She had radiation therapy from which she did not suffer as well. Over the last 10 years, her main symptom was diffuse articular pain diagnosed with fibromyalgia. ALLERGIES: The patient is allergic to aspirin, codeine, and iodine; all of them give her rash. FAMILY HISTORY: Her father in his 30s when the patient was 12 years old from consequence of alcoholism. Her mother of old age from Alzheimer dementia. She has 5 brothers, four of them ; none of them of connective-tissue disease. One brother is alive and in good health. She has 2 daughters and one of them is the main source of information to this consultation and the other one has systemic lupus and followed by a mandarin chinese teacher. SOCIAL HISTORY: She is a . She was born in [place]. She has been retired for several years. HABITS: The patient continues to smoke 1 pack a day for at least 50 years. She denies drinking and denies the use of illicit drugs. REVIEW OF SYSTEMS: The patient is unable to give any information regarding the state of health, however, according to her daughter, the patient was completely functional two weeks ago and complained mainly of diffuse articular pain, morning stiffness, and poor quality sleep. PHYSICAL EXAMINATION: VITAL SIGNS: Blood pressure is 129/77, her pulse was 97, respirations were 20, and temperature 97.7 degrees. HEENT: Eyes were normal. Pupils were round, equal, and reactive to light. Sclera was white. Conjunctiva was pink. Extraocular movement could not be assessed. Temporal arteries were palpable bilaterally. There was no bilateral temporal wasting. Visual granado to confrontation were normal and neglect sign could not be assessed. Repeat visual field to confrontation and neglect sign could not be assessed. ENT, mucous membranes were not dehydrated. Auditory canals were clear and tympanic membranes could not be visualized. Nasal cavity was not congested; however, the oral cavity could not be assessed because of the inability to observe the content of oral cavity. NECK: Supple. There was no goiter. No mass. No lymphadenopathy. There was no jugular venous distention. No bruits. Carotid upstroke was 2+. LUNGS: Clear. PMI was in fifth left intercostal space in midclavicular line. HEART: Normal S1 and normal S2. There was no murmur. No arrhythmia. No S3. No S4. No pericardial rub. ABDOMEN: Soft and nontender without organomegaly. There were no masses palpable. Normal bowel sounds without bruits. There was no guarding. No rebound tenderness. No ascites. No hernia. No CVA tenderness. Liver span was 8 cm, mostly nontender. EXTREMITIES: Warm. No cyanosis, no clubbing, and no edema. NEUROLOGIC: Reflexes, biceps, triceps, and brachioradialis were present. Patellar retinaculum were present. Plantar were indifferent. Cranial nerves from II through XII were symmetric and equal. Cerebellar function, there was no tremor. No nystagmus. No extrapyramidal rigidity. Sensory exam to pinprick, cotton touch, position, and motor strength could not be assessed. LABORATORY AND DIAGNOSTIC DATA: Hemoglobin 11.5, hematocrit 35.7, MCV of 84, WBC of 11.0, and platelets are 199,000. Her sed rate is 63. Her BUN and creatinine is 11 and 0.9 respectively. Sodium was 137, potassium 3.9, chloride 99, and CO2 was 24. SGOT and SGPT were normal. Her total CK is 174. Her troponin was not detected. Her proBNP is 423. Albumin was 3.0 and globulin was 3.4. Lipase was 13. There was no hyperglobulinemia. Her urine screen with 1+ leukocyte esterase, but that was negative for protein and negative for blood. Her INR was 1.1. Her cerebrospinal fluid revealed glucose of 38 and total protein of 176, was abnormal. Her chest x-ray revealed left elevated hemidiaphragm, borderline cardiomegaly, but otherwise normal study. Her head CT revealed some enlargement of the ventricle, basal cistern and several sulci consistent with atrophy and with white matter disease and hyperattenuation. There was no midline shift. There was no edema. No acute hemorrhage. No active pericardial bleed or mass effect. IMPRESSION: The patient has fever, sepsis, encephalitis, and not able to thrombocytopenia and noted hyperglobulinemia, was probably lupus exacerbation, however, the patient did not fulfil the criteria for lupus. PLAN: The patient to undergo biological assessment in regard to her immunity status, EBONY, rheumatoid factor, ESR, CRP, antiphospholipid antibodies and lupus anticoagulant will be requested as well as anti-DNA double-stranded. Repeat laboratory tests was already done. Thank you, Dr. Campos, for allowing me to participate in this critical case. Peggy Youssef M.D. DR: LIZZIE JOB#: [id number] CC:
[2016-03-29 04:00] VITALS: BP 142/76
[2016-03-29] MEDS: Ampicillin 2 GM in NS 110 ML IV SCH ×3 (05:08→19:04)
[2016-03-29] MEDS: ACYCLOVIR IV SCH ×3 (06:02→23:28)
[2016-03-29] MEDS: D5W IV SCH ×3 (06:02→23:28)
[2016-03-29] MEDS ORDERED: Vancomycin 1.25 GM in D5W 275 ML IVPB SCH (08:00)
[2016-03-29 08:03] VITALS: BP 133/77
[2016-03-29 08:11] LABS: HSV 1 ANTIBODY IGG 2.46 index (0.00-0.90); HSV 2 ANTIBODY IGG 3.58 index (0.00-0.90)
[2016-03-29 08:29] LABS: BASOPHILS % (AUTO) 1.6 % (0.0-2.0); EOSINOPHILS % (AUTO) 1.9 % (0.0-3.0); LYMPHOCYTES % (AUTO) 14.7 % (20.0-45.0); MEAN CORPUSCULAR HEMOGLOBIN 27.3 PG (27.0-31.0); MEAN CORPUSCULAR HGB CONC 32.6 G/DL (32.0-36.0); MEAN CORPUSCULAR VOLUME 84 FL (80-99); MEAN PLATELET VOLUME 8.4 FL (6.5-10.1); MONOCYTES % (AUTO) 7.1 % (1.0-10.0); NEUTROPHILS % (AUTO) 74.7 % (45.0-75.0); PLATELET COUNT 175 K/UL (150-450); RED BLOOD COUNT 4.22 M/UL (4.20-5.40); RED CELL DISTRIBUTION WIDTH 15.1 % (11.6-14.8); WHITE BLOOD COUNT 3.5 K/UL (4.8-10.8)
[2016-03-29 08:43] LABS: ALANINE AMINOTRANSFERASE 8 U/L (3-33); ALBUMIN/GLOBULIN RATIO 0.8 (1.0-2.7); ANION GAP 16 (5-15); ASPARTATE AMINO TRANSFERASE 17 U/L (5-40); CALCIUM 7.7 mg/dL (8.6-10.2); CARBON DIOXIDE 24 mEQ/L (20-30); CHLORIDE 96 mEQ/L (98-107); CREATININE 0.7 mg/dL (0.5-0.9); GLOMERULAR FILTRATION RATE > 60 mL/min (>60); HEMOLYSIS 15; POTASSIUM 3.9 mEQ/L (3.4-4.9); SODIUM 136 mEQ/L (135-145); TOTAL PROTEIN 6.1 g/dL (6.6-8.7)
[2016-03-29] MEDS ORDERED: DULoxetine 30mg cap ORAL SCH (09:00)
[2016-03-29] MEDS ORDERED: BuPROPion XL 300mg tab ORAL SCH ×2 (09:00)
[2016-03-29] MEDS: cefTRIAXone 2 GM in D5W 110 ML IVPB SCH ×2 (09:45→21:43)
[2016-03-29] MEDS: Heparin 5000 units/ml inj SUBQ SCH ×2 (09:45→21:53)
[2016-03-29] MEDS: Lyrica 75mg cap ORAL SCH ×4 (10:59→21:46)
[2016-03-29 11:31] VITALS: BP 117/68
--- NOTE | 2016-03-29 12:49 | Neurology Progress Note ---
Interim History Interim History ROS Limited/Unobtainable: No Complaints: cough Events: back to normal in am Objective Physical Exam Last Vital Signs Date Time Temp Pulse Resp B/P Pulse Ox O2 Delivery O2 Flow Rate FiO2 03/29/16 11:31 98.5 84 18 117/68 97 Room Air Laboratory Tests Test 03/28/16 15:50 03/28/16 17:15 03/28/16 20:00 03/29/16 06:50 CSF Appearance Hazy CSF Color Pale yellow CSF WBC 12 /CU MM (0-5) *H CSF RBC 4520 /CU MM CSF Neutrophils % 10 % CSF Lymphocytes % 88 % CSF Monocytes % 2 % CSF Crenated Cells 0 % CSF Glucose 38 mg/dL (50-80) L CSF Total Protein 176 mg/dL (15-45) H Ammonia 17 umol/L (11-51) Vitamin B12 Level 276 pg/mL (211-946) Folate 10.5 ng/mL (>3.0) Thyroid Stimulating Hormone (TSH) 0.682 uIU/mL (0.300-4.500) Anti-Nuclear Antibody Screen Pending Anti-Double Strand DNA Antibody Pending Total Complement (CH50) Pending Rapid Plasma Reagin Non reactive (Non Reactive) Herpes Simplex Virus I IgG Antibody 2.46 index (0.00-0.90) H Herpes Simplex Virus II IgG Ab 3.58 index (0.00-0.90) H HIV (1&2) Antibody Rapid Negative (NEGATIVE) Urine Color Pale yellow Urine Appearance Clear Urine pH 8 (4.5-8.0) Urine Specific Sebastian 1.010 (1.005-1.035) Urine Protein 1+ (NEGATIVE) H Urine Glucose (UA) Negative (NEGATIVE) Urine Ketones 2+ (NEGATIVE) H Urine Occult Blood Negative (NEGATIVE) Urine Nitrite Negative (NEGATIVE) Urine Bilirubin Negative (NEGATIVE) Urine Urobilinogen Normal MG/DL (0.0-1.0) Urine Leukocyte Esterase Negative (NEGATIVE) Urine RBC 0-2 /HPF (0 - 2) Urine WBC 0-2 /HPF (0 - 2) Urine Squamous Epithelial Cells Occasional /LPF Urine Bacteria None /HPF (NONE) White Blood Count 3.5 K/UL (4.8-10.8) #L Red Blood Count 4.22 M/UL (4.20-5.40) Hemoglobin 11.5 G/DL (12.0-16.0) L Hematocrit 35.3 % (37.0-47.0) L Mean Corpuscular Volume 84 FL (80-99) Mean Corpuscular Hemoglobin 27.3 PG (27.0-31.0) Mean Corpuscular Hemoglobin Concent 32.6 G/DL (32.0-36.0) Red Cell Distribution Width 15.1 % (11.6-14.8) H Platelet Count 175 K/UL (150-450) Mean Platelet Volume 8.4 FL (6.5-10.1) Neutrophils (%) (Auto) 74.7 % (45.0-75.0) Lymphocytes (%) (Auto) 14.7 % (20.0-45.0) L Monocytes (%) (Auto) 7.1 % (1.0-10.0) Eosinophils (%) (Auto) 1.9 % (0.0-3.0) Basophils (%) (Auto) 1.6 % (0.0-2.0) Sodium Level 136 mEQ/L (135-145) Potassium Level 3.9 mEQ/L (3.4-4.9) Chloride Level 96 mEQ/L (98-107) L Carbon Dioxide Level 24 mEQ/L (20-30) Anion Gap 16 (5-15) H Blood Urea Nitrogen 10 mg/dL (7-23) Creatinine 0.7 mg/dL (0.5-0.9) Estimat Glomerular Filtration Rate > 60 mL/min (>60) Glucose Level 81 mg/dL (74-106) Calcium Level 7.7 mg/dL (8.6-10.2) L Total Bilirubin 0.3 mg/dL (0.0-1.2) Aspartate Amino Transf (AST/SGOT) 17 U/L (5-40) Alanine Aminotransferase (ALT/SGPT) 8 U/L (3-33) Alkaline Phosphatase 41 U/L (35-104) Total Protein 6.1 g/dL (6.6-8.7) L Albumin 2.8 g/dL (3.5-5.2) L Globulin 3.3 g/dL Albumin/Globulin Ratio 0.8 (1.0-2.7) L General: well developed, well nourished, no acute distress Head: normocophalic, atraumatic Neck: no rigidity Neurologic Exam Mental Status: awake, alert, oriented x4, normal cognition, normal recent memory, normal remote memory, other - amnestic on events yesterday Speech: normal speech, no dysarthia Language: normal language, no aphasia Cranial Nerve II: fundus normal, visual granado, no papilledema Cranial Nerves III, IV, : PERRLA, EOMI, pupils Cranial Nerve V: normal facial sensations, temporales function normal, masseters function normal, pterygoids function normal Cranial Nerve VII: no facial asymmetry, normal facial expressions Cranial Nerve VIII: normal hearing, no nystagmus Cranial Nerve IX: normal palate elevation, gag response Cranial Nerve X: no voice hoarseness Cranial Nerve XI: SCM symmetric, trapezii function normal Cranial Nerve XII: tongue midline, no tongue atrophy/fasciculations Motor System: normal muscle tone, strength 5/5, no involuntary movement, no muscle wasting Sensory: normal pinprick, normal light touch, normal position sense, normal graphesthesia Coordination: normal finger to nose bilaterally, normal heel to gillespie bilaterally, negative Romberg test Deep Tendon Reflexes: 0 ankle (L), 0 ankle (R), 0 bicep (L), 0 bicep (R), 0 brachioradialis (L), 0 brachioradialis (R), 0 knee (L), 0 knee (R), 0 tricep (L) , 0 tricep (R) Reflexes: flexor plantar (L), flexor plantar (R) Stance: normal Gait: stable, normal regular, heel + toe gait Impression/Recommendations Problems: (1) nonbacterial 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
[2016-03-29] MEDS ORDERED: Miralax 17gm pkt ORAL PRN (13:15)
[2016-03-29] MEDS ORDERED: Vancomycin 1 GM in D5W 275 ML IVPB SCH (14:00)
--- NOTE | 2016-03-29 14:31 | Wound Care Consultation ---
Wound Assessment Wound Assessment : Wound Present on Admission: Yes New Wound: No Status Change of Wound: No Wound Location Body Site Modif: left, upper Wound Location Body Site: arm Wound Type: blister - open and intact Hannah Test: Does not Hannah Wound Thickness: Partial Thickness Wound Drainage Description: Serosanguineous Wound Drainage Amount: Scant Wound Drainage Odor: None/Absent Tissue Surrounding Wound: Denuded Wound General Appearance: Reddened Wound Comment #1 Left upper arm with open and intact blisters Recommendation -Cleanse with saline pat dry apply adaptic secure with suresite film dressing -Turn and reposition -Keep clean and dry -Optimize nutrition -Assess and f/u for s/s of infection or any changes accordingly JOHN KATZ RN Mar 29, 2016 14:31
--- NOTE | 2016-03-29 15:34 | Pulmonology Progress Note ---
Assessment/Plan Problems: (1) Acute encephalopathy (2) probably Meningitis vs. Sepsis with severe encephalopathy (3) Sepsis (4) Lupus (systemic lupus erythematosus) (5) Fibromyalgia Assessment/Plan mental status improved continue antibiotics check cultures check lupus serology med/surg Subjective ROS Limited/Unobtainable: No Constitutional: Reports: no symptoms HEENT: Repors: no symptoms Respiratory: Reports: no symptoms Allergies: Coded Allergies: IODINE (Verified Allergy, Severe, 03/28/16) ASPIRIN (Verified Allergy, Unknown, 12/06/15) CODEINE (Verified Allergy, Unknown, 12/06/15) Objective Last 24 Hour Vital Signs Date Time Temp Pulse Resp B/P Pulse Ox O2 Delivery O2 Flow Rate FiO2 03/29/16 13:34 96.8 03/29/16 11:31 98.5 84 18 117/68 97 Room Air 03/29/16 11:00 77 140/94 03/29/16 08:30 87 03/29/16 08:03 98.3 84 18 133/77 98 Room Air 03/29/16 04:00 97.0 74 20 142/76 97 03/29/16 04:00 85 03/29/16 00:25 98.0 95 20 135/77 94 Room Air 03/29/16 00:00 91 03/28/16 20:00 90 03/28/16 20:00 97.5 98 20 144/87 99 Room Air 03/28/16 16:00 97.7 97 20 129/77 95 Room Air Intake and Output 03/28/16 03/29/16 19:00 07:00 Intake Total 1128 ml 1449 ml Output Total 450 ml 850 ml Balance 678 ml 599 ml Intake Oral 0 ml IV Total 1128 ml 1449 ml Output Urine Total 450 ml 850 ml General Appearance: WD/WN HEENT: normocephalic, atraumatic Respiratory/Chest: chest wall non-tender, lungs clear Cardiovascular: normal peripheral pulses, normal rate Genitourinary: normal external genitalia 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, no motor/sensory deficits Lymphatic: no neck adenopathy Microbiology Date/Time Source Procedure Growth Status 03/28/16 15:50 Cerebral Spinal Fluid Gram Stain - Final Resulted 03/28/16 15:50 Cerebral Spinal Fluid CSF Culture - Preliminary NO GROWTH AFTER 24 HOURS Resulted 03/28/16 23:45 Nasopharynx Influenza Types A,B Antigen (NELL) - Final Complete Laboratory Tests 03/28/16 15:50: CSF Appearance Hazy, CSF Color Pale yellow, CSF WBC 12*H, CSF RBC 4520, CSF Neutrophils % 10, CSF Lymphocytes % 88, CSF Monocytes % 2, CSF Crenated Cells 0 , CSF Glucose 38L, CSF Total Protein 176H 03/28/16 17:15: Ammonia 17, Vitamin B12 Level 276, Folate 10.5, Thyroid Stimulating Hormone (TSH ) 0.682, Anti-Nuclear Antibody Screen [Pending], Anti-Double Strand DNA Antibody [Pending], Total Complement (CH50) [Pending], Rapid Plasma Reagin Non reactive, Herpes Simplex Virus I IgG Antibody 2.46H, Herpes Simplex Virus II IgG Ab 3.58H, HIV (1&2) Antibody Rapid Negative 03/28/16 20:00: Urine Color Pale yellow, Urine Appearance Clear, Urine pH 8, Urine Specific [place] 1.010, Urine Protein 1+H, Urine Glucose (UA) Negative, Urine Ketones 2+H , Urine Occult Blood Negative, Urine Nitrite Negative, Urine Bilirubin Negative , Urine Urobilinogen Normal, Urine Leukocyte Esterase Negative, Urine RBC 0-2, Urine WBC 0-2, Urine Squamous Epithelial Cells Occasional, Urine Bacteria None 03/29/16 06:50: White Blood Count 3.5#L, Red Blood Count 4.22, Hemoglobin 11.5L, Hematocrit 35.3L, Mean Corpuscular Volume 84, Mean Corpuscular Hemoglobin 27.3, Mean Corpuscular Hemoglobin Concent 32.6, Red Cell Distribution Width 15.1H, Platelet Count 175, Mean Platelet Volume 8.4, Neutrophils (%) (Auto) 74.7, Lymphocytes (%) (Auto) 14.7L, Monocytes (%) (Auto) 7.1, Eosinophils (%) (Auto) 1.9, Basophils (%) (Auto) 1.6, Sodium Level 136, Potassium Level 3.9, Chloride Level 96L, Carbon Dioxide Level 24, Anion Gap 16H, Blood Urea Nitrogen 10, Creatinine 0.7, Estimat Glomerular Filtration Rate > 60, Glucose Level 81, Calcium Level 7.7L, Total Bilirubin 0.3, Aspartate Amino Transf (AST/SGOT) 17, Alanine Aminotransferase (ALT/SGPT) 8, Alkaline Phosphatase 41, Total Protein 6.1L, Albumin 2.8L, Globulin 3.3, Albumin/Globulin Ratio 0.8L Current Medications Medications (Trade) Dose Ordered Sig/Ayana Route PRN Reason Start Time Stop Time Status Last Admin Dose Admin Acetaminophen (Tylenol) 650 mg Q4H PRN ORAL fever 03/28/16 17:15 04/27/16 17:14 Acyclovir 600 mg/ Dextrose 110 ml @ 110 mls/hr Q8HR IV 03/28/16 20:00 04/27/16 19:59 03/29/16 06:02 Albuterol/ Ipratropium (DuoNeb 0.5-3(2.5)mg/3ml) 3 ml Q4H PRN HHN Shortness of Breath 03/28/16 17:15 04/02/16 17:14 Amlodipine Besylate (Norvasc) 10 mg DAILY ORAL 03/29/16 09:00 04/28/16 08:59 03/29/16 11:00 Ampicillin 2 gm/ Sodium Chloride 110 ml @ 220 mls/hr EVERY 6 HOURS IV 03/28/16 18:30 04/04/16 18:29 03/29/16 14:28 Atorvastatin Calcium (Lipitor) 10 mg BEDTIME ORAL 03/28/16 21:00 04/27/16 20:59 Bupropion HCl (Wellbutrin XL) 300 mg DAILY ORAL 03/29/16 09:00 04/28/16 08:59 03/29/16 11:00 Ceftriaxone Sodium/Dextrose (Rocephin/D5W) 110 ml @ 220 mls/hr EVERY 12 HOURS IVPB 03/28/16 19:00 04/04/16 18:59 03/29/16 09:45 Clopidogrel Bisulfate (Plavix) 75 mg DAILY ORAL 03/29/16 09:00 04/28/16 08:59 03/29/16 09:45 Duloxetine HCl (Cymbalta) 30 mg DAILY ORAL 03/29/16 09:00 04/28/16 08:59 03/29/16 09:00 Heparin Sodium (Porcine) (Heparin 5000 units/ml) 5,000 units EVERY 12 HOURS SUBQ 03/28/16 21:00 04/27/16 20:59 03/29/16 09:45 Hydroxychloroquine Sulfate (Plaquenil) 200 mg BID ORAL 03/29/16 13:00 04/28/16 12:59 03/29/16 14:31 Methylprednisolone (Medrol) 4 mg DAILY ORAL 03/29/16 09:00 04/28/16 08:59 UNV Morphine Sulfate (Morphine Sulfate) 2 mg Q4H PRN IVP For Pain 03/28/16 20:15 04/04/16 20:14 03/28/16 21:16 Nitroglycerin (Ntg) 0.4 mg Q5M PRN SL Prn Chest Pain 03/28/16 16:45 04/27/16 16:44 Ondansetron HCl (Zofran) 4 mg Q6H PRN IVP Nausea & Vomiting 03/28/16 19:15 04/27/16 19:14 03/28/16 18:15 Polyethylene Glycol (Miralax) 17 gm DAILYPRN PRN ORAL Constipation 03/29/16 13:15 04/28/16 13:14 Pregabalin (Lyrica) 75 mg THREE TIMES A DAY ORAL 03/28/16 18:00 04/27/16 17:59 03/29/16 14:30 Sodium Chloride 1,000 ml @ 75 mls/hr [id number] IV 03/28/16 18:00 04/27/16 17:59 03/28/16 18:16 Temazepam (Restoril) 15 mg HSPRN PRN ORAL Insomnia 03/29/16 13:15 04/05/16 13:14 Vancomycin HCl 1 ea 1 ea DAILY PRN MISC PER RX PROTOCOL 03/29/16 09:00 04/28/16 08:59 Vancomycin HCl/ Dextrose (Vancomycin/D5W) 275 ml @ 183.3 mls/ hr Q24H IVPB 03/29/16 08:00 04/03/16 07:59 03/29/16 13:32 CHRISTINE NAJERA Mar 29, 2016 15:34
[2016-03-29 16:00] VITALS: BP 139/82
--- NOTE | 2016-03-29 16:59 | Infectious Diseases Prog Note ---
Assessment/Plan Assessment/Plan ASSESSMENT: 71 y/o female with: // Acute encephalopathy r/o meningitis, SLE cerebritis - resolved - SP difficult LP, only 3cc bloody (traumatic) - CSF lymphocytic pleocytosis , elevated TP, GS(-), Cx NGTD - CT Head: No acute intracranial bleed, mass effect or edema. 8mm left basal ganglia lacunar infarct, probably old. Mild atrophy of the brain. Nonspecific white matter hypoattenuation probably due to chronic small vessel disease. - probable viral with recent URI Sx - seropositive HSV-1,2 - negative/WNL: HIV, RPR, influenza, TSH, folate, B12, NH4 // Recent URI - negative influenza // Probable sepsis SP // Leukocytosis, mild --> leukopenia // Fever - resolved // SLE, on plaquenil, steroids r/o flare - elevated ESR, rheum following // Fibromyalgia // h/o brain tumor SP resection 2007 // No ABX allergies // Full Code PLAN: - continue empiric IV vancomycin, rocephin, ampicillin, ACY d# 2, de-escalate soon - taper steroids per rheum - consider MRI brain - f/u cultures - f/u EBONY panel - monitor CBC, temperatures - monitor BMP - droplet precautions pending CSF Cx d/w Dr. Campos Subjective Allergies: Coded Allergies: IODINE (Verified Allergy, Severe, 03/28/16) ASPIRIN (Verified Allergy, Unknown, 12/06/15) CODEINE (Verified Allergy, Unknown, 12/06/15) Subjective fevers resolved, encephalopathy resolved, denies meningismus Objective Vital Signs Last 24 Hour Vital Signs Date Time Temp Pulse Resp B/P Pulse Ox O2 Delivery O2 Flow Rate FiO2 03/29/16 16:00 97.8 81 20 139/82 98 Room Air 03/29/16 13:34 96.8 03/29/16 11:31 98.5 84 18 117/68 97 Room Air 03/29/16 11:00 77 140/94 03/29/16 08:30 87 03/29/16 08:03 98.3 84 18 133/77 98 Room Air 03/29/16 04:00 97.0 74 20 142/76 97 03/29/16 04:00 85 03/29/16 00:25 98.0 95 20 135/77 94 Room Air 03/29/16 00:00 91 03/28/16 20:00 90 03/28/16 20:00 97.5 98 20 144/87 99 Room Air Height (Feet): 5 Height (Inches): 5.00 Weight (Pounds): 125 General Appearance: no acute distress Respiratory/Chest: no respiratory distress Cardiovascular: normal rate, regular rhythm Abdomen: normal bowel sounds, soft, non tender, non distended Neurologic/Psychiatric: alert, oriented x 3 Microbiology Date/Time Source Procedure Growth Status 03/28/16 15:50 Cerebral Spinal Fluid Gram Stain - Final Resulted 03/28/16 15:50 Cerebral Spinal Fluid CSF Culture - Preliminary NO GROWTH AFTER 24 HOURS Resulted 03/28/16 23:45 Nasopharynx Influenza Types A,B Antigen (NELL) - Final Complete Laboratory Tests Test 03/28/16 17:15 03/28/16 20:00 03/29/16 06:50 Ammonia 17 umol/L (11-51) Vitamin B12 Level 276 pg/mL (211-946) Folate 10.5 ng/mL (>3.0) Thyroid Stimulating Hormone (TSH) 0.682 uIU/mL (0.300-4.500) Anti-Nuclear Antibody Screen Pending Anti-Double Strand DNA Antibody Pending Total Complement (CH50) Pending Rapid Plasma Reagin Non reactive (Non Reactive) Herpes Simplex Virus I IgG Antibody 2.46 index (0.00-0.90) H Herpes Simplex Virus II IgG Ab 3.58 index (0.00-0.90) H HIV (1&2) Antibody Rapid Negative (NEGATIVE) Urine Color Pale yellow Urine Appearance Clear Urine pH 8 (4.5-8.0) Urine Specific [place] 1.010 (1.005-1.035) Urine Protein 1+ (NEGATIVE) H Urine Glucose (UA) Negative (NEGATIVE) Urine Ketones 2+ (NEGATIVE) H Urine Occult Blood Negative (NEGATIVE) Urine Nitrite Negative (NEGATIVE) Urine Bilirubin Negative (NEGATIVE) Urine Urobilinogen Normal MG/DL (0.0-1.0) Urine Leukocyte Esterase Negative (NEGATIVE) Urine RBC 0-2 /HPF (0 - 2) Urine WBC 0-2 /HPF (0 - 2) Urine Squamous Epithelial Cells Occasional /LPF Urine Bacteria None /HPF (NONE) White Blood Count 3.5 K/UL (4.8-10.8) #L Red Blood Count 4.22 M/UL (4.20-5.40) Hemoglobin 11.5 G/DL (12.0-16.0) L Hematocrit 35.3 % (37.0-47.0) L Mean Corpuscular Volume 84 FL (80-99) Mean Corpuscular Hemoglobin 27.3 PG (27.0-31.0) Mean Corpuscular Hemoglobin Concent 32.6 G/DL (32.0-36.0) Red Cell Distribution Width 15.1 % (11.6-14.8) H Platelet Count 175 K/UL (150-450) Mean Platelet Volume 8.4 FL (6.5-10.1) Neutrophils (%) (Auto) 74.7 % (45.0-75.0) Lymphocytes (%) (Auto) 14.7 % (20.0-45.0) L Monocytes (%) (Auto) 7.1 % (1.0-10.0) Eosinophils (%) (Auto) 1.9 % (0.0-3.0) Basophils (%) (Auto) 1.6 % (0.0-2.0) Sodium Level 136 mEQ/L (135-145) Potassium Level 3.9 mEQ/L (3.4-4.9) Chloride Level 96 mEQ/L (98-107) L Carbon Dioxide Level 24 mEQ/L (20-30) Anion Gap 16 (5-15) H Blood Urea Nitrogen 10 mg/dL (7-23) Creatinine 0.7 mg/dL (0.5-0.9) Estimat Glomerular Filtration Rate > 60 mL/min (>60) Glucose Level 81 mg/dL (74-106) Calcium Level 7.7 mg/dL (8.6-10.2) L Total Bilirubin 0.3 mg/dL (0.0-1.2) Aspartate Amino Transf (AST/SGOT) 17 U/L (5-40) Alanine Aminotransferase (ALT/SGPT) 8 U/L (3-33) Alkaline Phosphatase 41 U/L (35-104) Total Protein 6.1 g/dL (6.6-8.7) L Albumin 2.8 g/dL (3.5-5.2) L Globulin 3.3 g/dL Albumin/Globulin Ratio 0.8 (1.0-2.7) L Current Medications Medications (Trade) Dose Ordered Sig/Ayana Route PRN Reason Start Time Stop Time Status Last Admin Dose Admin Acetaminophen (Tylenol) 650 mg Q4H PRN ORAL fever 03/28/16 17:15 04/27/16 17:14 Acyclovir 600 mg/ Dextrose 110 ml @ 110 mls/hr Q8HR IV 03/28/16 20:00 04/27/16 19:59 03/29/16 06:02 Albuterol/ Ipratropium (DuoNeb 0.5-3(2.5)mg/3ml) 3 ml Q4H PRN HHN Shortness of Breath 03/28/16 17:15 04/02/16 17:14 Amlodipine Besylate (Norvasc) 10 mg DAILY ORAL 03/29/16 09:00 04/28/16 08:59 03/29/16 11:00 Ampicillin 2 gm/ Sodium Chloride 110 ml @ 220 mls/hr EVERY 6 HOURS IV 03/28/16 18:30 04/04/16 18:29 03/29/16 14:28 Atorvastatin Calcium (Lipitor) 10 mg BEDTIME ORAL 03/28/16 21:00 04/27/16 20:59 Bupropion HCl (Wellbutrin XL) 300 mg DAILY ORAL 03/29/16 09:00 04/28/16 08:59 03/29/16 11:00 Ceftriaxone Sodium/Dextrose (Rocephin/D5W) 110 ml @ 220 mls/hr EVERY 12 HOURS IVPB 03/28/16 19:00 04/04/16 18:59 03/29/16 09:45 Clopidogrel Bisulfate (Plavix) 75 mg DAILY ORAL 03/29/16 09:00 04/28/16 08:59 03/29/16 09:45 Duloxetine HCl (Cymbalta) 30 mg DAILY ORAL 03/29/16 09:00 04/28/16 08:59 03/29/16 09:00 Heparin Sodium (Porcine) (Heparin 5000 units/ml) 5,000 units EVERY 12 HOURS SUBQ 03/28/16 21:00 04/27/16 20:59 03/29/16 09:45 Hydroxychloroquine Sulfate (Plaquenil) 200 mg BID ORAL 03/29/16 13:00 04/28/16 12:59 03/29/16 14:31 Methylprednisolone (Medrol) 4 mg DAILY ORAL 03/29/16 09:00 04/28/16 08:59 UNV Morphine Sulfate (Morphine Sulfate) 2 mg Q4H PRN IVP For Pain 03/28/16 20:15 04/04/16 20:14 03/28/16 21:16 Nitroglycerin (Ntg) 0.4 mg Q5M PRN SL Prn Chest Pain 03/28/16 16:45 04/27/16 16:44 Ondansetron HCl (Zofran) 4 mg Q6H PRN IVP Nausea & Vomiting 03/28/16 19:15 04/27/16 19:14 03/28/16 18:15 Polyethylene Glycol (Miralax) 17 gm DAILYPRN PRN ORAL Constipation 03/29/16 13:15 04/28/16 13:14 Pregabalin (Lyrica) 75 mg THREE TIMES A DAY ORAL 03/28/16 18:00 04/27/16 17:59 03/29/16 14:30 Sodium Chloride 1,000 ml @ 75 mls/hr [id number] IV 03/28/16 18:00 04/27/16 17:59 03/28/16 18:16 Temazepam (Restoril) 15 mg HSPRN PRN ORAL Insomnia 03/29/16 13:15 04/05/16 13:14 Vancomycin HCl 1 ea 1 ea DAILY PRN MISC PER RX PROTOCOL 03/29/16 09:00 04/28/16 08:59 Vancomycin HCl/ Dextrose (Vancomycin/D5W) 275 ml @ 183.3 mls/ hr Q24H IVPB 03/29/16 08:00 04/03/16 07:59 03/29/16 13:32 KIP HARDING Mar 29, 2016 16:59
[2016-03-29 19:13] LABS: ANTI DNA DS ANTIBODY 8 IU/mL (0-9)
[2016-03-29 20:00] VITALS: BP 121/72
[2016-03-30] VITALS (8 sets, daily range): BP systolic 115–140; BP diastolic 67–84
[2016-03-30] MEDS: Ampicillin 2 GM in NS 110 ML IV SCH ×4 (00:04→18:32)
[2016-03-30] MEDS ORDERED: Nitroglycerin Subl 0.4mg tab (Bottle Of 25) SL PRN (02:45)
[2016-03-30] MEDS ORDERED: Morphine Sulfate 2mg/ml Inj IVP PRN (04:15)
[2016-03-30] MEDS ORDERED: DuoNeb 0.5-3(2.5)mg/3ml neb HHN PRN (05:15)
[2016-03-30] MEDS: ACYCLOVIR IV SCH ×3 (06:04→22:52)
[2016-03-30] MEDS: D5W IV SCH ×3 (06:04→22:52)
[2016-03-30] MEDS ORDERED: Vancomycin 1.25 GM in D5W 275 ML IVPB SCH (08:00)
[2016-03-30] MEDS: DULoxetine 30mg cap ORAL SCH (09:00)
[2016-03-30] MEDS: Lyrica 75mg cap ORAL SCH ×3 (09:00→18:33)
[2016-03-30] MEDS: cefTRIAXone 2 GM in D5W 110 ML IVPB SCH ×2 (09:00→21:16)
[2016-03-30] MEDS: LORazepam 1mg tab ORAL SCH (09:30)
[2016-03-30] MEDS: Heparin 5000 units/ml inj SUBQ SCH ×2 (09:43→21:36)
[2016-03-30] MEDS: BuPROPion XL 300mg tab ORAL SCH (09:45)
[2016-03-30 10:55] LABS: CSF COMMENT PATHOLOGIST COMMENT
[2016-03-30 12:15] LABS: MEAN CORPUSCULAR HEMOGLOBIN 26.3 PG (27.0-31.0); MEAN CORPUSCULAR HGB CONC 31.5 G/DL (32.0-36.0); MEAN CORPUSCULAR VOLUME 83 FL (80-99); MEAN PLATELET VOLUME 9.9 FL (6.5-10.1); PLATELET COUNT 224 K/UL (150-450); RED BLOOD COUNT 4.45 M/UL (4.20-5.40); RED CELL DISTRIBUTION WIDTH 14.4 % (11.6-14.8); WHITE BLOOD COUNT 2.1 K/UL (4.8-10.8)
[2016-03-30 12:29] LABS: ALANINE AMINOTRANSFERASE 9 U/L (3-33); ALBUMIN/GLOBULIN RATIO 0.9 (1.0-2.7); ANION GAP 16 (5-15); ASPARTATE AMINO TRANSFERASE 13 U/L (5-40); CALCIUM 8.6 mg/dL (8.6-10.2); CARBON DIOXIDE 25 mEQ/L (20-30); CHLORIDE 97 mEQ/L (98-107); CREATININE 0.6 mg/dL (0.5-0.9); CRP QUANT 5.7 mg/dL (< 0.5); GLOMERULAR FILTRATION RATE > 60 mL/min (>60); HEMOLYSIS 5; MAGNESIUM 1.7 mg/dL (1.7-2.5); PHOSPHORUS 3.2 mg/dL (2.5-4.8); POTASSIUM 3.5 mEQ/L (3.4-4.9); SODIUM 138 mEQ/L (135-145); TOTAL PROTEIN 6.7 g/dL (6.6-8.7)
[2016-03-30 12:37] LABS: ANISOCYTOSIS 1+; BAND NEUTROPHILS % (MANUAL) 0 % (0-8); BASOPHILS % (MANUAL) 0 % (0-2); EOSINOPHILS % (MANUAL) 4 % (0-3); HYPOCHROMASIA 1+; LYMPHOCYTES % (MANUAL) 33 % (20-45); NEUTROPHILS % (MANUAL) 59 % (45-75); PLATELET ESTIMATE ADEQUATE; PLATELET MORPHOLOGY NORMAL; TOTAL CELLS COUNTED 100
[2016-03-30] MEDS ORDERED: Miralax 17gm pkt ORAL PRN (13:15)
[2016-03-30 13:24] LABS: ERYTHROCYTE SEDIMENTATION RATE 77 MM/HR (0-30)
--- NOTE | 2016-03-30 15:50 | Infectious Diseases Prog Note ---
Assessment/Plan Assessment/Plan ASSESSMENT: 71 y/o female with: // Acute encephalopathy, probable viral meningitis - resolved - SP difficult LP, only 3cc bloody (traumatic) - CSF lymphocytic pleocytosis , elevated TP, GS(-), Cx NGTD ( low glucose possibly d/t difficult procedure, delayed analysis ) - CT Head: No acute intracranial bleed, mass effect or edema. 8mm left basal ganglia lacunar infarct, probably old. Mild atrophy of the brain. Nonspecific white matter hypoattenuation probably due to chronic small vessel disease. - probable viral with recent URI Sx - seropositive HSV-1,2 - negative/WNL: HIV, RPR, influenza, TSH, folate, B12, NH4 // Recent URI - negative influenza // Probable sepsis SP // Leukocytosis, mild --> leukopenia ( SLE contributing ) // Fever - resolved // SLE, on plaquenil, steroids r/o flare - elevated ESR, rheum following - EBONY(+) // Fibromyalgia // h/o brain tumor SP resection 2007 // No ABX allergies // Full Code PLAN: - de-escalate ABX - continue rocephin d# 3 for now, DC IV vancomycin, ampicillin , ACY d# 3 - taper steroids per rheum - f/u cultures - f/u EBONY panel - monitor CBC, temperatures - monitor BMP - DC droplet precautions Subjective Allergies: Coded Allergies: IODINE (Verified Allergy, Severe, 03/28/16) ASPIRIN (Verified Allergy, Unknown, 12/06/15) CODEINE (Verified Allergy, Unknown, 12/06/15) Subjective fevers resolved, encephalopathy resolved, denies meningismus wants to eat Objective Vital Signs Last 24 Hour Vital Signs Date Time Temp Pulse Resp B/P Pulse Ox O2 Delivery O2 Flow Rate FiO2 03/30/16 12:22 97.0 80 19 120/72 100 Room Air 03/30/16 10:45 96.2 03/30/16 09:30 74 130/77 03/30/16 08:51 97.7 82 19 119/67 98 Room Air 03/30/16 04:00 97.2 83 18 115/76 98 Room Air 03/30/16 00:00 97.9 83 16 119/71 95 Room Air 03/29/16 20:00 97.8 82 21 121/72 97 Room Air 03/29/16 19:07 75 1/18/17 19:01 94 03/29/16 16:00 98.4 03/29/16 16:00 97.8 81 20 139/82 98 Room Air Height (Feet): 5 Height (Inches): 5.00 Weight (Pounds): 125 General Appearance: no acute distress Respiratory/Chest: normal breath sounds, no respiratory distress Cardiovascular: normal rate, regular rhythm Abdomen: normal bowel sounds, soft, non tender, non distended Extremities: no edema Skin: no rash Neurologic/Psychiatric: alert, oriented x 3 Microbiology Date/Time Source Procedure Growth Status 03/28/16 09:35 Blood Blood Culture - Preliminary NO GROWTH AFTER 24 HOURS Resulted 03/28/16 08:53 Blood Blood Culture - Preliminary NO GROWTH AFTER 24 HOURS Resulted 03/28/16 15:50 Cerebral Spinal Fluid Gram Stain - Final Resulted 03/28/16 15:50 Cerebral Spinal Fluid CSF Culture - Preliminary NO GROWTH AFTER 48 HOURS Resulted 03/28/16 23:45 Nasopharynx Influenza Types A,B Antigen (NELL) - Final Complete 03/28/16 20:00 Indwelling Cath Urine Culture - Preliminary NO GROWTH AFTER 24 HOURS Resulted 03/28/16 20:00 Back Gram Stain - Final Resulted 03/28/16 20:00 Back Wound Culture - Preliminary NO GROWTH AFTER 24 HOURS Resulted Laboratory Tests Test 03/30/16 12:00 White Blood Count 2.1 K/UL (4.8-10.8) *L Red Blood Count 4.45 M/UL (4.20-5.40) Hemoglobin 11.7 G/DL (12.0-16.0) L Hematocrit 37.1 % (37.0-47.0) Mean Corpuscular Volume 83 FL (80-99) Mean Corpuscular Hemoglobin 26.3 PG (27.0-31.0) L Mean Corpuscular Hemoglobin Concent 31.5 G/DL (32.0-36.0) L Red Cell Distribution Width 14.4 % (11.6-14.8) Platelet Count 224 K/UL (150-450) Mean Platelet Volume 9.9 FL (6.5-10.1) Neutrophils (%) (Auto) % (45.0-75.0) Lymphocytes (%) (Auto) % (20.0-45.0) Monocytes (%) (Auto) % (1.0-10.0) Eosinophils (%) (Auto) % (0.0-3.0) Basophils (%) (Auto) % (0.0-2.0) Differential Total Cells Counted 100 Neutrophils % (Manual) 59 % (45-75) Lymphocytes % (Manual) 33 % (20-45) Monocytes % (Manual) 4 % (1-10) Eosinophils % (Manual) 4 % (0-3) H Basophils % (Manual) 0 % (0-2) Band Neutrophils 0 % (0-8) Platelet Estimate Adequate Platelet Morphology Normal Hypochromasia 1+ Anisocytosis 1+ Erythrocyte Sedimentation Rate 77 MM/HR (0-30) H Sodium Level 138 mEQ/L (135-145) Potassium Level 3.5 mEQ/L (3.4-4.9) Chloride Level 97 mEQ/L (98-107) L Carbon Dioxide Level 25 mEQ/L (20-30) Anion Gap 16 (5-15) H Blood Urea Nitrogen 6 mg/dL (7-23) L Creatinine 0.6 mg/dL (0.5-0.9) Estimat Glomerular Filtration Rate > 60 mL/min (>60) Glucose Level 84 mg/dL (74-106) Calcium Level 8.6 mg/dL (8.6-10.2) Phosphorus Level 3.2 mg/dL (2.5-4.8) Magnesium Level 1.7 mg/dL (1.7-2.5) Total Bilirubin 0.2 mg/dL (0.0-1.2) Aspartate Amino Transf (AST/SGOT) 13 U/L (5-40) Alanine Aminotransferase (ALT/SGPT) 9 U/L (3-33) Alkaline Phosphatase 43 U/L (35-104) C-Reactive Protein, Quantitative 5.7 mg/dL (< 0.5) H Total Protein 6.7 g/dL (6.6-8.7) Albumin 3.2 g/dL (3.5-5.2) L Globulin 3.5 g/dL Albumin/Globulin Ratio 0.9 (1.0-2.7) L Current Medications Medications (Trade) Dose Ordered Sig/Ayana Route PRN Reason Start Time Stop Time Status Last Admin Dose Admin Acetaminophen (Tylenol) 650 mg Q4H PRN ORAL fever 03/30/16 05:15 04/29/16 05:14 Acyclovir 600 mg/ Dextrose 110 ml @ 110 mls/hr Q8HR IV 03/30/16 06:00 04/29/16 05:59 03/30/16 06:04 Albuterol/ Ipratropium (DuoNeb 0.5-3(2.5)mg/3ml) 3 ml Q4H PRN HHN Shortness of Breath 03/30/16 05:15 04/04/16 05:14 Amlodipine Besylate (Norvasc) 10 mg DAILY ORAL 03/30/16 09:00 04/29/16 08:59 03/30/16 09:30 Ampicillin 2 gm/ Sodium Chloride 110 ml @ 220 mls/hr EVERY 6 HOURS IV 03/30/16 06:00 04/06/16 05:59 03/30/16 12:00 Atorvastatin Calcium (Lipitor) 10 mg BEDTIME ORAL 03/30/16 21:00 04/29/16 20:59 Bupropion HCl (Wellbutrin XL) 300 mg DAILY ORAL 03/30/16 09:00 04/29/16 08:59 03/30/16 09:45 Ceftriaxone Sodium 2 gm/ Dextrose 110 ml @ 220 mls/hr EVERY 12 HOURS IVPB 03/30/16 09:00 04/06/16 08:59 03/30/16 09:00 Clopidogrel Bisulfate (Plavix) 75 mg DAILY ORAL 03/30/16 09:00 04/29/16 08:59 03/30/16 09:29 Duloxetine HCl (Cymbalta) 30 mg DAILY ORAL 03/30/16 09:00 04/29/16 08:59 03/30/16 09:00 Heparin Sodium (Porcine) (Heparin 5000 units/ml) 5,000 units EVERY 12 HOURS SUBQ 03/30/16 09:00 04/29/16 08:59 03/30/16 09:43 Hydroxychloroquine Sulfate (Plaquenil) 200 mg BID ORAL 03/30/16 09:00 04/29/16 08:59 03/30/16 09:33 Lorazepam 1 mg 1 mg DAILY ORAL 03/30/16 09:00 04/06/16 08:59 03/30/16 09:30 Methylprednisolone (Medrol) 4 mg DAILY ORAL 03/30/16 09:00 04/29/16 08:59 03/30/16 09:30 Morphine Sulfate (Morphine Sulfate) 2 mg Q4H PRN IVP For Pain 03/30/16 04:15 04/06/16 04:14 Nitroglycerin (Ntg) 0.4 mg Q5M PRN SL Prn Chest Pain 03/30/16 02:45 04/29/16 02:44 Ondansetron HCl (Zofran) 4 mg Q6H PRN IVP Nausea & Vomiting 03/30/16 07:15 04/29/16 07:14 Polyethylene Glycol (Miralax) 17 gm DAILYPRN PRN ORAL Constipation 03/30/16 13:15 04/29/16 13:14 Pregabalin (Lyrica) 75 mg THREE TIMES A DAY ORAL 03/30/16 09:00 04/29/16 08:59 03/30/16 09:49 Sodium Chloride 1,000 ml @ 75 mls/hr [id number] IV 03/30/16 02:45 04/29/16 02:44 03/30/16 15:08 Temazepam (Restoril) 15 mg HSPRN PRN ORAL Insomnia 03/30/16 13:15 04/06/16 13:14 Vancomycin HCl (Vanco rx to dose) 1 ea DAILY PRN MISC PER RX PROTOCOL 03/30/16 09:00 04/29/16 08:59 Vancomycin HCl/ Dextrose (Vancomycin/D5W) 275 ml @ 183.3 mls/ hr Q24H IVPB 03/30/16 08:00 04/04/16 07:59 03/30/16 08:40 KIP HARDING Mar 30, 2016 15:50
--- NOTE | 2016-03-30 17:09 | Neurology Progress Note ---
Interim History Interim History ROS Limited/Unobtainable: No Complaints: feel ok Events: stable Objective Physical Exam Last Vital Signs Date Time Temp Pulse Resp B/P Pulse Ox O2 Delivery O2 Flow Rate FiO2 03/30/16 12:22 97.0 80 19 120/72 100 Room Air Laboratory Tests Test 03/30/16 12:00 White Blood Count 2.1 K/UL (4.8-10.8) *L Red Blood Count 4.45 M/UL (4.20-5.40) Hemoglobin 11.7 G/DL (12.0-16.0) L Hematocrit 37.1 % (37.0-47.0) Mean Corpuscular Volume 83 FL (80-99) Mean Corpuscular Hemoglobin 26.3 PG (27.0-31.0) L Mean Corpuscular Hemoglobin Concent 31.5 G/DL (32.0-36.0) L Red Cell Distribution Width 14.4 % (11.6-14.8) Platelet Count 224 K/UL (150-450) Mean Platelet Volume 9.9 FL (6.5-10.1) Neutrophils (%) (Auto) % (45.0-75.0) Lymphocytes (%) (Auto) % (20.0-45.0) Monocytes (%) (Auto) % (1.0-10.0) Eosinophils (%) (Auto) % (0.0-3.0) Basophils (%) (Auto) % (0.0-2.0) Differential Total Cells Counted 100 Neutrophils % (Manual) 59 % (45-75) Lymphocytes % (Manual) 33 % (20-45) Monocytes % (Manual) 4 % (1-10) Eosinophils % (Manual) 4 % (0-3) H Basophils % (Manual) 0 % (0-2) Band Neutrophils 0 % (0-8) Platelet Estimate Adequate Platelet Morphology Normal Hypochromasia 1+ Anisocytosis 1+ Erythrocyte Sedimentation Rate 77 MM/HR (0-30) H Sodium Level 138 mEQ/L (135-145) Potassium Level 3.5 mEQ/L (3.4-4.9) Chloride Level 97 mEQ/L (98-107) L Carbon Dioxide Level 25 mEQ/L (20-30) Anion Gap 16 (5-15) H Blood Urea Nitrogen 6 mg/dL (7-23) L Creatinine 0.6 mg/dL (0.5-0.9) Estimat Glomerular Filtration Rate > 60 mL/min (>60) Glucose Level 84 mg/dL (74-106) Calcium Level 8.6 mg/dL (8.6-10.2) Phosphorus Level 3.2 mg/dL (2.5-4.8) Magnesium Level 1.7 mg/dL (1.7-2.5) Total Bilirubin 0.2 mg/dL (0.0-1.2) Aspartate Amino Transf (AST/SGOT) 13 U/L (5-40) Alanine Aminotransferase (ALT/SGPT) 9 U/L (3-33) Alkaline Phosphatase 43 U/L (35-104) C-Reactive Protein, Quantitative 5.7 mg/dL (< 0.5) H Total Protein 6.7 g/dL (6.6-8.7) Albumin 3.2 g/dL (3.5-5.2) L Globulin 3.5 g/dL Albumin/Globulin Ratio 0.9 (1.0-2.7) L General: well developed, well nourished, no acute distress Head: normocophalic, atraumatic Neck: no rigidity Neurologic Exam Mental Status: awake, alert, oriented x4, normal cognition, normal recent memory, normal remote memory, other - amnestic on recent episode Speech: normal speech, no dysarthia Language: normal language, no aphasia Cranial Nerve II: fundus normal, visual granado, no papilledema Cranial Nerves III, IV, : PERRLA, EOMI, pupils Cranial Nerve V: normal facial sensations, temporales function normal, masseters function normal, pterygoids function normal Cranial Nerve VII: no facial asymmetry, normal facial expressions Cranial Nerve VIII: normal hearing, no nystagmus Cranial Nerve IX: normal palate elevation, gag response Cranial Nerve X: no voice hoarseness Cranial Nerve XI: SCM symmetric, trapezii function normal Cranial Nerve XII: tongue midline, no tongue atrophy/fasciculations Motor System: normal muscle tone, strength 5/5, no involuntary movement, no muscle wasting Sensory: normal pinprick, normal light touch, normal position sense, normal graphesthesia Coordination: normal finger to nose bilaterally, normal heel to gillespie bilaterally, negative Romberg test Deep Tendon Reflexes: 0 ankle (L), 0 ankle (R), 0 bicep (L), 0 bicep (R), 0 brachioradialis (L), 0 brachioradialis (R), 0 knee (L), 0 knee (R), 0 tricep (L) , 0 tricep (R) Reflexes: flexor plantar (L), flexor plantar (R) Stance: normal, other Gait: stable, normal regular, heel + toe gait, other Impression/Recommendations Problems: (1) HSV meningitis with transient encephalopathy (2) Depression (3) h/o benign brain tumor resection and XRT (4) recent UTI (5) Fibromyalgia (6) Lupus (systemic lupus erythematosus) Status: doing well, unchanged Recommendations #[id number] rheum w/u acyclovir per ID MRI brain cont present trearment neuro stable CHRISTINE LOPEZ Mar 30, 2016 17:09
--- NOTE | 2016-03-30 17:58 | Pulmonology Progress Note ---
Assessment/Plan Problems: (1) Acute encephalopathy (2) probably Meningitis vs. Sepsis with severe encephalopathy (3) Sepsis (4) Lupus (systemic lupus erythematosus) (5) Fibromyalgia Assessment/Plan mental status improved continue antibiotics, tapered by ID consult watch wbc check cultures lupus serology, positive advance diet Subjective ROS Limited/Unobtainable: No Constitutional: Reports: no symptoms HEENT: Repors: no symptoms Respiratory: Reports: no symptoms Allergies: Coded Allergies: IODINE (Verified Allergy, Severe, 03/28/16) ASPIRIN (Verified Allergy, Unknown, 12/06/15) CODEINE (Verified Allergy, Unknown, 12/06/15) Objective Last 24 Hour Vital Signs Date Time Temp Pulse Resp B/P Pulse Ox O2 Delivery O2 Flow Rate FiO2 03/30/16 12:22 97.0 80 19 120/72 100 Room Air 03/30/16 10:45 96.2 03/30/16 09:30 74 130/77 03/30/16 08:51 97.7 82 19 119/67 98 Room Air 03/30/16 04:00 97.2 83 18 115/76 98 Room Air 03/30/16 00:00 97.9 83 16 119/71 95 Room Air 03/29/16 20:00 97.8 82 21 121/72 97 Room Air 03/29/16 19:07 75 03/29/16 19:01 94 Intake and Output 03/29/16 03/30/16 19:00 07:00 Intake Total 720 ml Output Total 1050 ml 1650 ml Balance -1050 ml -930 ml IV Total 720 ml Output Urine Total 1050 ml 1650 ml General Appearance: WD/WN HEENT: normocephalic Respiratory/Chest: chest wall non-tender, lungs clear Cardiovascular: normal rate, regular rhythm Abdomen: normal bowel sounds Extremities: no cyanosis Neurologic/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, responsive Microbiology Date/Time Source Procedure Growth Status 03/28/16 09:35 Blood Blood Culture - Preliminary NO GROWTH AFTER 24 HOURS Resulted 03/28/16 08:53 Blood Blood Culture - Preliminary NO GROWTH AFTER 24 HOURS Resulted 03/28/16 15:50 Cerebral Spinal Fluid Gram Stain - Final Resulted 03/28/16 15:50 Cerebral Spinal Fluid CSF Culture - Preliminary NO GROWTH AFTER 48 HOURS Resulted 03/28/16 23:45 Nasopharynx Influenza Types A,B Antigen (NELL) - Final Complete 03/28/16 20:00 Indwelling Cath Urine Culture - Preliminary NO GROWTH AFTER 24 HOURS Resulted 03/28/16 20:00 Back Gram Stain - Final Resulted 03/28/16 20:00 Back Wound Culture - Preliminary NO GROWTH AFTER 24 HOURS Resulted Laboratory Tests 03/30/16 12:00: White Blood Count 2.1*L, Red Blood Count 4.45, Hemoglobin 11.7L, Hematocrit 37.1 , Mean Corpuscular Volume 83, Mean Corpuscular Hemoglobin 26.3L, Mean Corpuscular Hemoglobin Concent 31.5L, Red Cell Distribution Width 14.4, Platelet Count 224, Mean Platelet Volume 9.9, Neutrophils (%) (Auto) , Lymphocytes (%) (Auto) , Monocytes (%) (Auto) , Eosinophils (%) (Auto) , Basophils (%) (Auto) , Differential Total Cells Counted 100, Neutrophils % ( Manual) 59, Lymphocytes % (Manual) 33, Monocytes % (Manual) 4, Eosinophils % ( Manual) 4H, Basophils % (Manual) 0, Band Neutrophils 0, Platelet Estimate Adequate, Platelet Morphology Normal, Hypochromasia 1+, Anisocytosis 1+, Erythrocyte Sedimentation Rate 77H, Sodium Level 138, Potassium Level 3.5, Chloride Level 97L, Carbon Dioxide Level 25, Anion Gap 16H, Blood Urea Nitrogen 6L, Creatinine 0.6, Estimat Glomerular Filtration Rate > 60, Glucose Level 84, Calcium Level 8.6, Phosphorus Level 3.2, Magnesium Level 1.7, Total Bilirubin 0.2, Aspartate Amino Transf (AST/SGOT) 13, Alanine Aminotransferase (ALT/SGPT) 9 , Alkaline Phosphatase 43, C-Reactive Protein, Quantitative 5.7H, Total Protein 6.7, Albumin 3.2L, Globulin 3.5, Albumin/Globulin Ratio 0.9L Current Medications Medications (Trade) Dose Ordered Sig/Ayana Route PRN Reason Start Time Stop Time Status Last Admin Dose Admin Acetaminophen (Tylenol) 650 mg Q4H PRN ORAL fever 03/30/16 05:15 04/29/16 05:14 Acyclovir 600 mg/ Dextrose 110 ml @ 110 mls/hr Q8HR IV 03/30/16 06:00 03/30/16 23:59 03/30/16 06:04 Albuterol/ Ipratropium (DuoNeb 0.5-3(2.5)mg/3ml) 3 ml Q4H PRN HHN Shortness of Breath 03/30/16 05:15 04/04/16 05:14 Amlodipine Besylate (Norvasc) 10 mg DAILY ORAL 03/30/16 09:00 04/29/16 08:59 03/30/16 09:30 Ampicillin 2 gm/ Sodium Chloride 110 ml @ 220 mls/hr EVERY 6 HOURS IV 03/30/16 06:00 03/30/16 23:59 03/30/16 12:00 Atorvastatin Calcium (Lipitor) 10 mg BEDTIME ORAL 03/30/16 21:00 04/29/16 20:59 Bupropion HCl (Wellbutrin XL) 300 mg DAILY ORAL 03/30/16 09:00 04/29/16 08:59 03/30/16 09:45 Ceftriaxone Sodium 2 gm/ Dextrose 110 ml @ 220 mls/hr EVERY 12 HOURS IVPB 03/30/16 09:00 04/06/16 08:59 03/30/16 09:00 Clopidogrel Bisulfate (Plavix) 75 mg DAILY ORAL 03/30/16 09:00 04/29/16 08:59 03/30/16 09:29 Duloxetine HCl (Cymbalta) 30 mg DAILY ORAL 03/30/16 09:00 04/29/16 08:59 03/30/16 09:00 Heparin Sodium (Porcine) (Heparin 5000 units/ml) 5,000 units EVERY 12 HOURS SUBQ 03/30/16 09:00 04/29/16 08:59 03/30/16 09:43 Hydroxychloroquine Sulfate (Plaquenil) 200 mg BID ORAL 03/30/16 09:00 04/29/16 08:59 03/30/16 09:33 Lorazepam 1 mg 1 mg DAILY ORAL 03/30/16 09:00 04/06/16 08:59 03/30/16 09:30 Methylprednisolone (Medrol) 4 mg DAILY ORAL 03/30/16 09:00 04/29/16 08:59 03/30/16 09:30 Morphine Sulfate (Morphine Sulfate) 2 mg Q4H PRN IVP For Pain 03/30/16 04:15 04/06/16 04:14 Nitroglycerin (Ntg) 0.4 mg Q5M PRN SL Prn Chest Pain 03/30/16 02:45 04/29/16 02:44 Ondansetron HCl (Zofran) 4 mg Q6H PRN IVP Nausea & Vomiting 03/30/16 07:15 04/29/16 07:14 Polyethylene Glycol (Miralax) 17 gm DAILYPRN PRN ORAL Constipation 03/30/16 13:15 04/29/16 13:14 Pregabalin (Lyrica) 75 mg THREE TIMES A DAY ORAL 03/30/16 09:00 04/29/16 08:59 03/30/16 09:49 Sodium Chloride 1,000 ml @ 75 mls/hr [id number] IV 03/30/16 02:45 04/29/16 02:44 03/30/16 15:08 Temazepam (Restoril) 15 mg HSPRN PRN ORAL Insomnia 03/30/16 13:15 04/06/16 13:14 Vancomycin HCl (Vanco rx to dose) 1 ea DAILY PRN MISC PER RX PROTOCOL 03/30/16 09:00 03/30/16 23:59 Vancomycin HCl/ Dextrose (Vancomycin/D5W) 275 ml @ 183.3 mls/ hr Q24H IVPB 03/30/16 08:00 03/30/16 23:59 03/30/16 08:40 CHRISTINE NAJERA Mar 30, 2016 17:58
[2016-03-31 04:29] VITALS: BP 132/82
--- NOTE | 2016-03-31 08:07 | Pulmonology Progress Note ---
Assessment/Plan Assessment/Plan ASSESSMENT probable sepsis acute transient encephalopathy 2 to viral ( HSV) meningitis HSV meningitis s/p LP SLE, possible flare hx of L lacunar infarct hx of benign brain tumor, s/p resection HTN fibromyalgia depression PLAN OF CARE [facility] floor mental status improved, stable, s/p LP ( cx and G stain negative, elev TP, lymphocytic pleocytosis) HSV+ abx, Acyclovir, ID follows dc droplet precautions RPR, HIV, influenza-negative TSH. folate, B12. ammonia all WNL CT head no acute intracranial pathology but chronic changes c/w old L lacunar infarct on Plaquenil and sterids, rheumo follows, likely lupus flare taper steroids - per rheumo BP management with CCB, stable continue statin and Plavix ( allergic to ASA) DVT prophylaxis case discussed and evaluated by supervising physician Subjective Allergies: Coded Allergies: IODINE (Verified Allergy, Severe, 03/28/16) ASPIRIN (Verified Allergy, Unknown, 12/06/15) CODEINE (Verified Allergy, Unknown, 12/06/15) Subjective afebrile, leukocytosis resolved, neutropenic 03/30, labs pending for today mental status down christopher normal Objective Last 24 Hour Vital Signs Date Time Temp Pulse Resp B/P Pulse Ox O2 Delivery O2 Flow Rate FiO2 03/31/16 04:29 97.2 82 20 132/82 100 Room Air 03/30/16 23:54 97.5 77 19 140/76 99 Room Air 03/30/16 22:24 98.1 82 22 123/81 100 Room Air 03/30/16 20:00 98.1 82 22 123/82 100 Room Air 03/30/16 19:00 82 16 Room Air 03/30/16 16:00 97.9 80 20 139/84 98 Room Air 03/30/16 12:22 97.0 80 19 120/72 100 Room Air 03/30/16 10:45 96.2 03/30/16 09:30 74 130/77 03/30/16 08:51 97.7 82 19 119/67 98 Room Air Intake and Output 03/30/16 03/31/16 19:00 07:00 Intake Total 260 ml 1495 ml Output Total 2300 ml Balance 260 ml -805 ml Intake Oral 600 ml IV Total 260 ml 895 ml Output Urine Total 2300 ml # Voids 2 # Bowel Movements 1 General Appearance: WD/WN, no acute distress, other - A/A/O x 4 AA female HEENT: normocephalic, atraumatic, anicteric Respiratory/Chest: lungs clear, normal breath sounds, no respiratory distress, no accessory muscle use Cardiovascular: normal peripheral pulses, normal rate, regular rhythm, no JVD Abdomen: normal bowel sounds, soft, non tender, non distended Genitourinary: normal external genitalia Extremities: no edema, pedal pulses normal Neurologic/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 grossly normal, alert, oriented x 3, responsive, normal mood/affect Musculoskeletal: normal muscle bulk Microbiology Date/Time Source Procedure Growth Status 03/28/16 09:35 Blood Blood Culture - Preliminary NO GROWTH AFTER 48 HOURS Resulted 03/28/16 08:53 Blood Blood Culture - Preliminary NO GROWTH AFTER 48 HOURS Resulted 03/28/16 15:50 Cerebral Spinal Fluid Gram Stain - Final Resulted 03/28/16 15:50 Cerebral Spinal Fluid CSF Culture - Preliminary NO GROWTH AFTER 48 HOURS Resulted 03/28/16 23:45 Nasopharynx Influenza Types A,B Antigen (NELL) - Final Complete 03/28/16 20:00 Indwelling Cath Urine Culture - Final NO GROWTH AFTER 48 HOURS Complete 03/28/16 20:00 Back Gram Stain - Final Resulted 03/28/16 20:00 Back Wound Culture - Preliminary NO GROWTH AFTER 24 HOURS Resulted Laboratory Tests 03/30/16 12:00: White Blood Count 2.1*L, Red Blood Count 4.45, Hemoglobin 11.7L, Hematocrit 37.1 , Mean Corpuscular Volume 83, Mean Corpuscular Hemoglobin 26.3L, Mean Corpuscular Hemoglobin Concent 31.5L, Red Cell Distribution Width 14.4, Platelet Count 224, Mean Platelet Volume 9.9, Neutrophils (%) (Auto) , Lymphocytes (%) (Auto) , Monocytes (%) (Auto) , Eosinophils (%) (Auto) , Basophils (%) (Auto) , Differential Total Cells Counted 100, Neutrophils % ( Manual) 59, Lymphocytes % (Manual) 33, Monocytes % (Manual) 4, Eosinophils % ( Manual) 4H, Basophils % (Manual) 0, Band Neutrophils 0, Platelet Estimate Adequate, Platelet Morphology Normal, Hypochromasia 1+, Anisocytosis 1+, Erythrocyte Sedimentation Rate 77H, Sodium Level 138, Potassium Level 3.5, Chloride Level 97L, Carbon Dioxide Level 25, Anion Gap 16H, Blood Urea Nitrogen 6L, Creatinine 0.6, Estimat Glomerular Filtration Rate > 60, Glucose Level 84, Calcium Level 8.6, Phosphorus Level 3.2, Magnesium Level 1.7, Total Bilirubin 0.2, Aspartate Amino Transf (AST/SGOT) 13, Alanine Aminotransferase (ALT/SGPT) 9 , Alkaline Phosphatase 43, C-Reactive Protein, Quantitative 5.7H, Total Protein 6.7, Albumin 3.2L, Globulin 3.5, Albumin/Globulin Ratio 0.9L 03/31/16 06:45: Vancomycin Level Trough 8.9 Current Medications Medications (Trade) Dose Ordered Sig/Ayana Route PRN Reason Start Time Stop Time Status Last Admin Dose Admin Acetaminophen (Tylenol) 650 mg Q4H PRN ORAL fever 03/30/16 05:15 04/29/16 05:14 Albuterol/ Ipratropium (DuoNeb 0.5-3(2.5)mg/3ml) 3 ml Q4H PRN HHN Shortness of Breath 03/30/16 05:15 04/04/16 05:14 Amlodipine Besylate (Norvasc) 10 mg DAILY ORAL 03/30/16 09:00 04/29/16 08:59 03/30/16 09:30 Atorvastatin Calcium (Lipitor) 10 mg BEDTIME ORAL 03/30/16 21:00 04/29/16 20:59 03/30/16 21:17 Bupropion HCl (Wellbutrin XL) 300 mg DAILY ORAL 03/30/16 09:00 04/29/16 08:59 03/30/16 09:45 Ceftriaxone Sodium/Dextrose (Rocephin/D5W) 110 ml @ 220 mls/hr EVERY 12 HOURS IVPB 03/30/16 09:00 04/06/16 08:59 03/30/16 21:16 Clopidogrel Bisulfate (Plavix) 75 mg DAILY ORAL 03/30/16 09:00 04/29/16 08:59 03/30/16 09:29 Duloxetine HCl (Cymbalta) 30 mg DAILY ORAL 03/30/16 09:00 04/29/16 08:59 03/30/16 09:00 Heparin Sodium (Porcine) (Heparin 5000 units/ml) 5,000 units EVERY 12 HOURS SUBQ 03/30/16 09:00 04/29/16 08:59 03/30/16 21:36 Hydroxychloroquine Sulfate (Plaquenil) 200 mg BID ORAL 03/30/16 09:00 04/29/16 08:59 03/30/16 18:33 Lorazepam 1 mg 1 mg DAILY ORAL 03/30/16 09:00 04/06/16 08:59 03/30/16 09:30 Methylprednisolone (Medrol) 4 mg DAILY ORAL 03/30/16 09:00 04/29/16 08:59 03/30/16 09:30 Morphine Sulfate (Morphine Sulfate) 2 mg Q4H PRN IVP For Pain 03/30/16 04:15 04/06/16 04:14 Nitroglycerin (Ntg) 0.4 mg Q5M PRN SL Prn Chest Pain 03/30/16 02:45 04/29/16 02:44 Ondansetron HCl (Zofran) 4 mg Q6H PRN IVP Nausea & Vomiting 03/30/16 07:15 04/29/16 07:14 Polyethylene Glycol (Miralax) 17 gm DAILYPRN PRN ORAL Constipation 03/30/16 13:15 04/29/16 13:14 Pregabalin (Lyrica) 75 mg THREE TIMES A DAY ORAL 03/30/16 09:00 04/29/16 08:59 03/30/16 18:33 Sodium Chloride 1,000 ml @ 75 mls/hr [id number] IV 03/30/16 02:45 04/29/16 02:44 03/30/16 15:08 Temazepam (Restoril) 15 mg HSPRN PRN ORAL Insomnia 03/30/16 13:15 04/06/16 13:14 [facility] SimmonsL[facility] HospitalTiana Livingston NP Mar 31, 2016 08:07
[2016-03-31 08:51] VITALS: BP 133/77
[2016-03-31] MEDS: cefTRIAXone 2 GM in D5W 110 ML IVPB SCH (09:20)
[2016-03-31] MEDS: BuPROPion XL 300mg tab ORAL SCH (09:20)
[2016-03-31] MEDS: LORazepam 1mg tab ORAL SCH (09:20)
[2016-03-31] MEDS: DULoxetine 30mg cap ORAL SCH (09:21)
[2016-03-31] MEDS: Lyrica 75mg cap ORAL SCH ×2 (09:21→11:37)
[2016-03-31] MEDS: Heparin 5000 units/ml inj SUBQ SCH (09:28)
[2016-03-31 12:10] VITALS: BP 134/83
[2016-03-31] MEDS ORDERED: Tubing IV Secondary IV ONE ×2 (13:14)
[2016-03-31] MEDS ORDERED: 1/2 NS 1000ml IV ONE (13:14)
--- NOTE | 2016-03-31 19:27 | Discharge Summary ---
Discharge Summary Hospital Course Date of Admission Mar 28, 2016 at 09:28 Date of Discharge Mar 31, 2016 at 13:15 Admitting Diagnosis HYPOGLYCEMIA,SEPSIS HPI Ayde Mo Carlos Alberto Lance is a 71 year old female who was admitted on Mar 28, 2016 at 09:28 for Hypoglycemia,Sepsis Hospital Course [id number] Discharge Discharge Disposition Patient was discharged to Home with Home Health(06) Discharge Diagnoses: Renetta Steward NP Mar 31, 2016 19:27
--- NOTE | 2016-04-01 06:57 | Discharge Summary 2 SIG ---
DATE OF ADMISSION: 03/28/2016 DATE OF DISCHARGE: 03/31/2016 CONSULTANTS: 1. Rolando Delarosa M.D. 2. Guero Cannon M.D. 3. Peggy Youssef M.D. BRIEF HOSPITAL COURSE: The patient is a 71-year-old female with history of brain tumor, hypertension, who was not feeling well for one week and has been eating less became more lethargic in the last hours prior to admission. Family members called the paramedics. At ED, the patient was somnolent and was thought to be hypoglycemic and received D50 and NS bolus. She was admitted to medical floor and was started on broad-spectrum antibiotic. The head CT showed no acute intracranial bleed, mass effect, or edema with left basal ganglia lacunar infarct probably old. Lumbar puncture was done. However, the procedure was suboptimal as there was difficulty related to the patient's combativeness. Neurologic evaluation was done and was started on steroids and Decadron 6 mg IV piggyback every 6 hours. She was initially placed on NPO. There was consideration of sepsis versus meningitis. Dr. Cannon was consulted. The patient has high-grade fever. WBC is 11 with left shift. She was pancultured. CSF showed lymphocytic pleocytosis with elevated protein. Culture did not isolate any growth. Low glucose possibly due to difficult procedure and delayed analysis. HIV, RPR, influenza, TSH, folate, B12 and ammonia were negative. She was continued on empiric vancomycin, Rocephin, ampicillin, and acyclovir. She was continued on Plaquenil for SLE lupus flare. Mental status eventually improved. The patient was discharged home with home health. FINAL DIAGNOSES: 1. Probable sepsis. 2. Acute transient toxic metabolic encephalopathy secondary to viral meningitis. 3. Herpes simplex virus meningitis. 4. Status post lumbar puncture. 5. Systemic lupus erythematosus with possible flare. 6. Old lacunar infarcts. 7. Old benign brain tumor status post resection. 8. Hypertension. 9. Fibromyalgia. 10. Depression. 11. Recent urinary tract infection. Gregory Campos M.D. I have been assigned to dictate discharge summary on this account and I was not involved in the patient's management. Renetta Steward N.P. DR: KORIN JOB#: [id number] CC:
--- NOTE | 2016-04-25 15:23 | Cardiology Report ---
APPROVED REPORT EKG Measurement Heart [id number] Normal sinus rhythm Biatrial enlargement Abnormal ECG
== END 2016-03-31 13:15 | disposition home health service (06) | DRG 871 ==
LOC: ENRESERVTM → ENRESERVDT → ENRESERV → EDBD 08:54 → EMR 09:17 → EDBEDREQSVC 09:24 → 4E 09:28 → EDBEDREQ 09:44 → 2E 16:48 → 4W 03-30 02:19
PROC: 009U3ZX Drainage of Spinal Canal, Percutaneous Approach, Diagnostic (ICD-10-PCS; principal; 2016-03-28)
DX: A41.9 Sepsis, unspecified organism (principal); G92 Toxic encephalopathy; B00.3 Herpesviral meningitis; D69.6 Thrombocytopenia, unspecified; M32.9 Systemic lupus erythematosus, unspecified; Z88.6 Allergy status to analgesic agent; Z88.8 Allergy status to other drugs, medicaments and biological substances; Z79.02 Long term (current) use of antithrombotics/antiplatelets; M79.7 Fibromyalgia; Z86.73 Personal history of transient ischemic attack (TIA), and cerebral infarction without residual deficits; Z86.011 Personal history of benign neoplasm of the brain; I10 Essential (primary) hypertension; F32.9 Major depressive disorder, single episode, unspecified; Z92.3 Personal history of irradiation; K21.9 Gastro-esophageal reflux disease without esophagitis; I25.10 Atherosclerotic heart disease of native coronary artery without angina pectoris; F17.200 Nicotine dependence, unspecified, uncomplicated
CPT/HCPCS: 36415; 70450; 71010; 80053; 80202; 80300; 81001; 81003; 82140; 82550; 82553; 82607; 82746; 82945; 82962; 83605; 83690; 83735; 83880; 84100; 84157; 84443; 84484; 85007; 85025; 85610; 85651; 86039; 86140; 86162; 86225; 86592; 86695; 86696; 86703; 86710; 87040; 87070; 87086; 87205; 89051; 93005; 94664; J2405